=== PATIENT | male | born 1960 | race Caucasian/White ===

== ENCOUNTER → 2018-04-27 11:11 | Outpatient (CLI) | payer OTHER, SELFPAY ==
[2018-04-27 14:53] LABS: Absolute Lymphocyte Count 1.41 X10^3/ul (0.83-4.51); Absolute Neutrophil Count 3.1 X10^3/uL (2.0-7.7); Basophil# 0.02 X10^3/uL; Basophil% 0.4 % (0-1); Eosinophil# 0.19 X10^3/uL; Eosinophils% 3.8 % (0-5); Hematocrit 48.4 % (40-54); Hemoglobin 15.9 g/dl (13.0-16.5); Lymphocyte # 1.41 X10^3/ul (4.0); Lymphocyte % 28.4 % (19-41); Mean Corp Hgb Conc 32.9 g/gl (32-36); Mean Corpuscular Hgb 29.7 pg (27.0-32.0); Mean Corpuscular Volume 90.3 fL (80-94); Mean Platelet Vol. 10.1 fl (6.2-12.0); Monocyte# 0.27 X10^3/uL; Monocyte% 5.4 % (0-10); Neutrophil # 3.06 X10^3/uL (2.7-7.7); Neutrophil % 61.6 % (47-70); Platelet Count 225 K/mm3 (150-450); Red Blood Count 5.36 M/mm3 (4.6-6.2)
[2018-04-27 14:57] LABS: POSITIVE COUNT NO; POSITIVE DIFFERENTIAL NO; POSITIVE MORPHOLOGY NO
[2018-04-27 15:32] LABS: Ferritin 202 ng/mL (26-388); Iron 253 ug/dL (65-175); Iron Binding Capacity,Total 273 ug/dL (250-450)
== END ==
PROVIDERS: Family Provider Family Medicine; PCP Family Medicine; Visit Provider Family Medicine
DX: D64.9 Anemia, unspecified (principal)
CPT/HCPCS: 36415; 82728; 83540; 83550; 85025

== ENCOUNTER → 2018-07-20 09:48 | Outpatient (CLI) | payer OTHER, SELFPAY ==
[2018-07-20 12:22] LABS: Absolute Lymphocyte Count 1.42 X10^3/ul (0.83-4.51); Absolute Neutrophil Count 3.7 X10^3/uL (2.0-7.7); Basophil# 0.03 X10^3/uL; Basophil% 0.5 % (0-1); Eosinophil# 0.19 X10^3/uL; Eosinophils% 3.2 % (0-5); Hematocrit 46.4 % (40-54); Hemoglobin 15.8 g/dl (13.0-16.5); Lymphocyte # 1.42 X10^3/ul (4.0); Lymphocyte % 24.3 % (19-41); Mean Corp Hgb Conc 34.1 g/gl (32-36); Mean Corpuscular Hgb 30.3 pg (27.0-32.0); Mean Corpuscular Volume 88.9 fL (80-94); Mean Platelet Vol. 10.2 fl (6.2-12.0); Monocyte# 0.46 X10^3/uL; Monocyte% 7.9 % (0-10); Neutrophil # 3.72 X10^3/uL (2.7-7.7); Neutrophil % 63.6 % (47-70); Platelet Count 229 K/mm3 (150-450); RBC Distribution Width CV 12.4 % (11.6-14.6); RBC Distribution Width SD 40.6 fl (35.1-43.9); Red Blood Count 5.22 M/mm3 (4.6-6.2); White Blood Count 5.9 K/mm3 (4.4-11.0)
[2018-07-20 12:29] LABS: POSITIVE COUNT NO; POSITIVE DIFFERENTIAL NO; POSITIVE MORPHOLOGY NO
[2018-07-20 12:31] LABS: Anion Gap 6 (5-15); BUN 17 mg/dL (7-18); BUN/Creat Ratio 14.7 RATIO (10-20); Calcium,Total 8.5 mg/dL (8.5-10.1); Chloride 109 mmol/L (98-107); Cholesterol 170 mg/dL (200); Creatinine, Serum 1.16 mg/dL (0.70-1.30); EST Glomerular Filtration Rate 68 mL/min (>60); Est Glom Filt Rate - Afr Amer 83 mL/min (>60); Glucose 96 mg/dL (74-106); High Density Lipoprotein 53 mg/dL; Sodium Level 141 mmol/L (136-145); Triglycerides 103 mg/dL; Very Low Density Lipoprotein 21 mg/dL (5-40)
== END ==
PROVIDERS: Family Provider Family Medicine; PCP Family Medicine; Visit Provider Family Medicine
DX: D64.9 Anemia, unspecified (principal); R03.0 Elevated blood-pressure reading, without diagnosis of hypertension
CPT/HCPCS: 36415; 80048; 80061; 85025

== ENCOUNTER → 2019-01-18 | Outpatient (CLI) | payer OTHER, SELFPAY ==
[2019-01-18 16:11] LABS: Anion Gap 4 (5-15); BUN 13 mg/dL (7-18); BUN/Creat Ratio 11.8 RATIO (10-20); Calcium,Total 8.6 mg/dL (8.5-10.1); Chloride 108 mmol/L (98-107); Cholesterol 200 mg/dL (200); EST Glomerular Filtration Rate 73 mL/min (>60); Est Glom Filt Rate - Afr Amer 88 mL/min (>60); Glucose 96 mg/dL (74-106); High Density Lipoprotein 58 mg/dL; PSA,Total - Annual Screen 0.63 ng/mL (0.00-4.00); Potassium 4.2 mmol/L (3.5-5.1); Sodium Level 142 mmol/L (136-145); Thyroid Stim Hormone (TSH) 2.05 uIU/mL (0.358-3.74); Triglycerides 116 mg/dL; Very Low Density Lipoprotein 23 mg/dL (5-40)
[2019-01-18 17:33] LABS: Vitamin D,25 Hydroxy 30.4 ng/mL (29.95-100.01)
== END | disposition home or self-care (01) ==
PROVIDERS: Family Provider Family Medicine; PCP Family Medicine; Referring Provider Family Medicine; Visit Provider Family Medicine
DX: Z00.00 Encounter for general adult medical examination without abnormal findings (principal)
CPT/HCPCS: 36415; 80048; 80061; 82306; 84153; 84403; 84443; G0103

== ENCOUNTER 2019-04-06 13:48 | Emergency (ER) | payer OTHER, SELFPAY ==
[2019-04-06 13:49] VITALS: BP 144/88; PULSE 70; RESP 16; TEMP 36.7; O2SAT 99; BMI 30.7
--- NOTE | 2019-04-06 14:49 | ED.VISSUMM ---
- ER Visit Summary Date of Service: 04/06/19 Chief Complaint: [Injury to the left eye History of Present Illness: The patient is a 58 M presents to the emergency department with an injury that occurred to his left eye about an hour ago. Patient was trimming branches when he looked down and a branch accidentally hit him in the left eye. Patient complaining of photophobia and blurred vision. Patient's tetanus is up-to-date.] Physical Examination: [HEENT-PERRLA, EOMI. Cranial nerves II through XII grossly intact. TMs clear. Mucous membranes moist. No adenopathy. Patient holding the left eye closed and he has some tearing noted. Patient has some conjunctival erythema noted. No Marcus sign noted. Pupils are equal reactive to light and are 3 mm and reactive bilaterally. Cardiovascular-regular rate and rhythm without murmur or ectopy Lungs-clear to auscultation, chest wall stable without crepitus or subcu emphysema Abdomen-normoactive bowel sounds, soft, nontender, no rebound or rigidity, no peritoneal signs. Extremities-intact ?4, normal range of motion, normal pulses, atraumatic] Test Results: [Eyelids were everted no foreign bodies noted.] Emergency Department Course and Treatment: [Patient had tetracaine instilled in the left eye and the eye was stained with foreseen which noted a very large corneal abrasion measuring approximately 75% the width of the cornea. Patient also had some uptake on the lateral conjunctiva. No foreign bodies noted within the wounds. Patient had erythromycin ointment applied to the left thigh and a eye patch was applied.] Left eye pressure initially was obtained and was 24. Treatment Plan: [Case was discussed with ophthalmology on-call Dr. Cecilio Sainz who will see patient in the office in 2 days. Patient denies anything for pain for home as he has Vicodin at home left over from his recent rotator cuff surgery.] Disposition: [Discharged to home stable condition] Impression: [Left corneal abrasion] This note was generated with [employer] dictation software. It may contain incorrect words, spelling, and punctuation that were not noted in review of the chart prior to signing ED Disposition - Plan for ED Patient: Referrals: Denver Calix MD [Primary Care Provider] -
--- NOTE | 2019-04-06 14:53 | ED.DEP ---
ED Disposition - Plan for ED Patient: Instructions: Corneal Abrasion Referrals: Denver Calix MD [Primary Care Provider] - Cecilio Sainz MD [STAFF PHYSICIAN] - 04/08/19
[2019-04-06] MEDS: Tetracaine 0.5% Ophthalmic Bottle 1 DRP LEFT EYE (15:03)
== END 2019-04-06 15:11 | disposition home or self-care (01) ==
PROVIDERS: Emergency Provider Emergency Medicine; Family Provider Family Medicine; PCP Family Medicine
DX: S05.02XA Injury of conjunctiva and corneal abrasion without foreign body, left eye, initial encounter (principal); W22.8XXA Striking against or struck by other objects, initial encounter; Y93.9 Activity, unspecified; Y92.9 Unspecified place or not applicable
CPT/HCPCS: 99282

== ENCOUNTER → 2019-11-18 11:15 | Outpatient (CLI) | payer OTHER, SELFPAY ==
[2019-11-18 12:27] LABS: Absolute Lymphocyte Count 1.14 X10^3/uL (0.83-4.51); Absolute Neutrophil Count 3.8 X10^3/uL (2.0-7.7); Basophil# 0.02 X10^3/uL; Basophil% 0.3 % (0-1); Eosinophil# 0.15 X10^3/uL; Eosinophils% 2.6 % (0-5); Hematocrit 49.2 % (40-54); Hemoglobin 16.5 g/dL (13.0-16.5); Lymphocyte # 1.14 X10^3/ul (4.0); Lymphocyte % 19.9 % (19-41); Mean Corp Hgb Conc 33.5 g/dL (32-36); Mean Corpuscular Hgb 29.5 pg (27.0-32.0); Mean Corpuscular Volume 87.9 fL (80-94); Mean Platelet Vol. 10.1 fl (6.2-12.0); Monocyte# 0.56 X10^3/uL; Monocyte% 9.8 % (0-10); NRBC Flagged by Analyzer 0 % (0-5); Neutrophil # 3.83 X10^3/uL (2.7-7.7); Neutrophil % 67.1 % (47-70); Platelet Count 208 K/mm3 (150-450); RBC Distribution Width SD 38.5 fl (35.1-43.9); White Blood Count 5.7 K/mm3 (4.4-11.0)
[2019-11-18 13:07] LABS: Anion Gap 6 (5-15); BUN 17 mg/dL (7-18); BUN/Creat Ratio 13.1 RATIO (10-20); Calcium,Total 8.8 mg/dL (8.5-10.1); Chloride 111 mmol/L (98-107); EST Glomerular Filtration Rate 60 mL/min (>60); Est Glom Filt Rate - Afr Amer 72 mL/min (>60); Glucose 100 mg/dL (74-106); Potassium 3.9 mmol/L (3.5-5.1); Sodium Level 142 mmol/L (136-145)
== END ==
PROVIDERS: PCP Family Medicine; Referring Provider Family Medicine; Visit Provider Registered Nurse
DX: Z01.810 Encounter for preprocedural cardiovascular examination (principal); Z01.818 Encounter for other preprocedural examination
CPT/HCPCS: 36415; 80048; 85025

== ENCOUNTER → 2020-04-29 09:35 | Outpatient (CLI) | payer OTHER, SELFPAY ==
--- NOTE | 2020-04-29 09:38 | RAD_ITS ---
STUDY: X-RAY - RIGHT ELBOW REASON FOR EXAM: Male, 60 years old. PAIN IN RIGHT ELBOW WITH SWELLING FOR ABOUT A YEAR OR MORE. TECHNIQUE: 3 view(s) of the elbow. COMPARISON: None. FINDINGS: Normal visualized humerus, radius and ulna. There mild degenerative changes of the radiocapitellar and ulnotrochlear articulations. The soft tissue structures are unremarkable. RAD/Elbow min 3 Views IMPRESSION: Mild degenerative changes of the radiocapitellar and ulnotrochlear articulations. Electronically Signed: Eben Neri MD at 17:10 EDT , Service support ,
== END ==
PROVIDERS: PCP Family Medicine; Referring Provider Family Medicine; Visit Provider Family Medicine
DX: M25.521 Pain in right elbow (principal)
CPT/HCPCS: 73080

== ENCOUNTER → 2020-07-06 15:50 | Outpatient (CLI) | payer OTHER, SELFPAY | PROVIDERS: PCP Family Medicine; Visit Provider Family Medicine | DX: Z11.59 Encounter for screening for other viral diseases (principal) | CPT/HCPCS: 87635; U0003 ==

== ENCOUNTER → 2020-10-26 09:21 | Outpatient (CLI) | payer OTHER, SELFPAY ==
[2020-09-18 13:54] VITALS: BMI 29.7
[2020-10-26 09:42] LABS: Absolute Neutrophil Count 7.9 X10^3/uL (2.0-7.7); Basophil# 0.04 X10^3/uL; Basophil% 0.4 % (0-1); Eosinophil# 0.09 X10^3/uL; Eosinophils% 0.9 % (0-5); Hematocrit 50.8 % (40-54); Hemoglobin 16.7 g/dL (13.0-16.5); Lymphocyte % 8.3 % (19-41); Mean Corp Hgb Conc 32.9 g/dL (32-36); Mean Corpuscular Hgb 28.9 pg (27.0-32.0); Mean Platelet Vol. 9.3 fl (6.2-12.0); Monocyte# 0.77 X10^3/uL; NRBC Flagged by Analyzer 0 % (0-5); Neutrophil # 7.89 X10^3/uL (2.7-7.7); Neutrophil % 82.1 % (47-70); Platelet Count 234 K/mm3 (150-450); RBC Distribution Width CV 12.2 % (11.6-14.6); RBC Distribution Width SD 39.9 fl (35.1-43.9); Red Blood Count 5.77 M/mm3 (4.6-6.2); White Blood Count 9.6 K/mm3 (4.4-11.0)
[2020-10-26 09:57] LABS: ALB/GLOB Ratio 0.9 RATIO (0.9-2.4); AST(SGOT) 15 U/L (15-37); Alanine Aminotransfer ALT/SGPT 24 U/L (16-61); Albumin, Serum 3.7 g/dL (3.2-5.0); Alkaline Phosphatase 90 U/L (45-117); Anion Gap 6 (5-15); BUN 12 mg/dL (7-18); BUN/Creat Ratio 9.3 RATIO (10-20); Calcium,Total 8.7 mg/dL (8.5-10.1); Chloride 105 mmol/L (98-107); Creatinine, Serum 1.29 mg/dL (0.70-1.30); EST Glomerular Filtration Rate 60 mL/min (>60); Est Glom Filt Rate - Afr Amer 73 mL/min (>60); Globulin 3.9 g/dL (2.2-4.2); Glucose 115 mg/dL (74-106); Lipase 64 U/L (73-393); Potassium 3.9 mmol/L (3.5-5.1); Protein, Total 7.6 g/dL (6.4-8.2); Sodium Level 140 mmol/L (136-145)
== END ==
PROVIDERS: PCP Family Medicine; Referring Provider Family Medicine; Visit Provider Family Medicine
DX: R10.9 Unspecified abdominal pain (principal)
CPT/HCPCS: 36415; 80053; 83690; 85025

== ENCOUNTER 2020-10-26 10:45 | Observation (INO) | payer OTHER, SELFPAY ==
[2020-09-18 13:54] VITALS: BMI 29.7
[2020-10-26 10:46] VITALS: BP 153/96; PULSE 70; RESP 16; TEMP 35.5; O2SAT 98; BMI 28.5
--- NOTE | 2020-10-26 11:36 | CT_ITS ---
STUDY: CT ABDOMEN AND PELVIS WITH CONTRAST REASON FOR EXAM: Male, 60 years old. RT SIDE EPIGASTRIC PAIN, N/V, CONSTIPATION RADIATION DOSAGE (If Supplied By Facility): CTDIvol = ( 19.48 ) mGy, DLP = ( 1330.32 ) mGycm TECHNIQUE: Transaxial images were obtained from the dome of the diaphragm to the symphysis pubis without oral contrast. 100 ML ISOVUE 300 was administered. Sagittal and coronal images were reconstructed. Individualized dose optimization techniques were used for this CT. COMPARISON: Comparison is made with prior study dated 06/03/2016. FINDINGS: Mild degree of linear atelectasis and/or scarring at the right lung base. Calcified granuloma in the right lower lobe. The visualized portions of the heart are within normal limits. Stable 1 some mucous cyst in the inferior medial aspect of the right lobe of the liver. Stable 6 mm cyst in the left lobe of the liver. Mild degree of the thickening of the gallbladder wall with the findings suggest a mild degree of inflammatory changes in the fat surrounding the gallbladder. Correlation with ultrasound of the gallbladder is recommended for further evaluation. Normal spleen. Normal pancreas. Normal bilateral adrenal glands. Normal right kidney. Normal left kidney. There is a moderate-sized hiatal hernia. Normal small intestine. There are multiple colonic diverticula consistent with diverticulosis. The appendix is visualized and appears normal. Normal abdominal aorta. Normal inferior vena cava. Normal retroperitoneum. Normal urinary bladder. There is a right-sided inguinal hernia containing adipose tissue. There are diffuse degenerative changes of the visualized lumbar spine. Status post bilateral total hip replacement. CT/Abdomen/Pelvis WITH Contrast IMPRESSION: Mild degree of the gallbladder wall thickening with increased markings in the surrounding peritoneal fat. Correlation with ultrasound is recommended for further evaluation. Electronically Signed: Lj Francois MD at 12:25 EST , Service support ,
--- NOTE | 2020-10-26 11:43 | ED.VIS.GEN ---
History of Present Illness Chief Complaint: Abd Pain Informant: Patient Narrative: Patient presents with right-sided abdominal pain. Symptoms began on Monday and noted to be in the epigastric right abdomen. He has had some nausea and vomiting. He felt okay on Monday going into Monday. Symptoms returned. He notes his constipation and he took some magnesium citrate. Today he had outpatient labs by his primary care physician reviewed which revealed a white count of 9.6 glucose of 115 normal LFTs and lipase of 64. He was scheduled for an outpatient CAT scan but due to pain came to emergency. He denies any fevers. Past Medical History - Allergies and Home Meds Allergies/Adverse Reactions: Allergies NEOSYNEPHRINE Allergy (Uncoded 10/26/20 10:46) Unknown Primary Care Physician: Denver Calix MD [Primary Care Provider] - Past Medical History: - - GERD, depression, obstructive sleep apnea Surgical History: noncontributory Lives: With Family Smoking Status: Never smoker Drugs: None Review of Systems General: Denies: Chills, Fever, Sweats Eyes: Denies: Visual changes - bilaterally, Diplopia ENT: Denies: Rhinorrhea, Sore throat Cardiovascular: Denies: Chest pain, Palpitations Respiratory: Denies: Dyspnea, Cough, Dyspnea on exertion Gastrointestinal: Reports: Abdominal pain, Nausea, Vomiting, Constipation. Denies: Diarrhea, Melena, Hematochezia Genitourinary: Denies: Dysuria, Hematuria, Frequency Musculoskeletal: Denies: Back pain, Extremity Pain Skin: Denies: Rash, Wounds Neurological: Denies: Headache, Weakness, Numbness Physical Exam Vital Signs/Narrative: Vital Signs Temp Pulse Resp BP Pulse Ox 10/26/20 10:46 96 F L 70 16 153/96 H 98 Inital Vital Signs reviewed: Yes General: Well nourished, Well developed, No Acute Distress Head: Normocephalic, Atraumatic Eyes: Perrl, EOMI ENT: Moist mucous membranes, No rhinorrhea Neck: Supple, Nontender Cardiovascular: Regular rate, Regular rhythm, No murmurs Respiratory: No distress, CTA bilaterally, Chest nontender Abdomen: Soft, Nondistended, Normal bowel sounds, Tender - Tender palpation right upper quadrant and right middle quadrant. Back: Nontender, Normal Inspection Extremities: Nontender, No edema Skin: Normal color, No rash Neurological: Alert, Oriented x3, Cranial nerves II-XII grossly intact, Normal Strength, Normal Sensation Psychological: Normal affect, Normal Mood Diagnostic/Tx/Re-eval Clinical Impression(s) from Imaging Studies Abdomen/Pelvis CT 10/26/20 11:36 IMPRESSION: Mild degree of the gallbladder wall thickening with increased markings in the surrounding peritoneal fat. Correlation with ultrasound is recommended for further evaluation. Electronically Signed: Lj Francois MD at 12:25 EST , Service support , Abdomen Ultrasound 10/26/20 12:18 IMPRESSION: Positive sonographic Polo''s sign. Mildly thickened gallbladder wall. Small amount of sludge is seen within the gallbladder lumen. Electronically Signed: Lj Francois MD at 13:47 EST , Service support , - Medical Decision Making Covid negative. Labs are reviewed. Dr. Ulloa from general surgery was consulted and has seen the patient emergency department plan is admission. ED Disposition - Plan for ED Patient: Disposition: Acute Care Hospital [facility] Diagnosis: Acute cholecystitis Referrals: Denver Calix MD [Primary Care Provider] -
[2020-10-26] MEDS: 0.9% Normal Saline 1,000 ML 1000 ML IV (11:51)
[2020-10-26] MEDS: Morphine 4 MG/ML Syringe IV (11:51)
[2020-10-26] MEDS: Ondansetron 4 MG/2 ML Vial IV (11:52)
--- NOTE | 2020-10-26 12:18 | US_ITS ---
STUDY: ABDOMINAL ULTRASOUND - RIGHT UPPER QUADRANT REASON FOR VISIT: Male, 60 years old RIGHT ABD PAIN X 3 DAYS -- F/U CT DONE TODAY TECHNIQUE: Ultrasound evaluation of the right upper quadrant was performed with real-time and static brunner-scale imaging. TECHNICAL QUALITY: Adequate. COMPARISON: Comparison is made with prior CT scan done earlier today. FINDINGS: Liver: The liver measures 17.9 cm. There is normal echogenicity of the liver. The bile ducts are within normal limits. There is hepatic color flow. The direction of portal flow is hepatopetal. There is no demonstrated mass lesion. Gallbladder: Normal distended gallbladder. The gallbladder wall is slightly thickened and measures 3.4 mm. There is a positive sonographic Polo''s sign. There is no pericholecystic fluid. There are no gallstones. Sludge is seen within the gallbladder fluid. Common Bile Duct (C.B.D.): The common bile duct measures 3.4 mm. Pancreas: There is nonvisualization of the pancreas due to overlying bowel gas. Right Kidney: Normal size of the right kidney. The right kidney measures 12 cm x 6.5 cm x 6.1 cm. Normal renal cortex. The right cortex measures 1.4 cm. There is no demonstrated renal mass or cyst. There is no right hydronephrosis. US/Abdomen Limited IMPRESSION: Positive sonographic Polo''s sign. Mildly thickened gallbladder wall. Small amount of sludge is seen within the gallbladder lumen. Electronically Signed: Lj Francois MD at 13:47 EST , Service support ,
--- NOTE | 2020-10-26 14:13 | PCM.HP.STD ---
History of Present Illness Date of Admission: 10/26/20 The patient is a 60 year old M resents to the ER due to epigastric pain. Patient states initially pain started on Monday the epigastric region with nausea denies any vomiting patient did have fatty meal of chicken/gravy/dressing. The pain did get better on Monday. Patient did talk to his PCP and took some magnesium citrate patient did have bowel movements however that did not change the pain. Patient did have an outpatient CT scheduled by his PCP for today which showed a distended gallbladder with some inflammation around the wall normal appendix. Patient rates his epigastric pain is a 6?7/10. Patient's ultrasound also shows a slightly thickened wall with a positive Polo sign, gallbladder sludge, normal common bile duct. Patient does have a normal white blood cell count with a left shift and normal LFTs. Past Medical History Medical History: Medical History (Last Reviewed 09/18/20 @ 13:54 by Carline Ortiz) Depression F32.9 GERD (gastroesophageal reflux disease) K21.9 Hemorrhoids K64.9 RIMA (obstructive sleep apnea) G47.33 Obesity E66.9 Allergies NEOSYNEPHRINE Allergy (Uncoded 10/26/20 10:46) Unknown Home Medications: Ambulatory Orders Medication Instructions Recorded Esomeprazole Mag Trihydrate 40 mg PO DAILY 06/03/16 [Nexium] B-complex with vitamin C 1 cap PO DAILY 09/18/20 cholecalciferol (vitamin D3) 25 25 mcg PO DAILY 09/18/20 mcg (1,000 unit) capsule ferrous sulfate 325 mg (65 mg 325 mg PO DAILY 09/18/20 iron) tablet psyllium husk 0.4 gram capsule 0.4 g PO DAILY 09/18/20 Naproxen [Naprosyn] 500 mg PO BID PRN 10/26/20 Paroxetine [Paxil] 10 mg PO DAILY 10/26/20 Surgical History: Surgical History (Last Reviewed 09/18/20 @ 13:54 by Carline Ortiz) S/P hemorrhoidectomy Z98.890, Z87.19 S/P shoulder surgery Z98.890 Status post total hip replacement, bilateral Z96.643 Lives: With Family Smoking Status: Never smoker Drugs: None - *Family History Maternal Family History: Family History (Last Reviewed 09/18/20 @ 13:54 by Carline Ortiz) Brother Hypertension History Items: No pertinent history VTE Information - Inpt Only VTE Present on Admission: Yes VTE Mechan Device Prophylaxis: SCD's Patient Problems: Active and Suspected Problems (Last Reviewed 09/18/20 @ 13:54 by Carline Ortiz) Acute cholecystitis (Acute) - Physical Exam Vitals/I&O's: Vital Signs Temp Pulse Resp BP Pulse Ox 96 F L 70 16 153/96 H 98 10/26/20 10:46 10/26/20 10:46 10/26/20 10:46 10/26/20 10:46 10/26/20 10:46 Oxygen Delivery Method Room Air Weight: 205 lb Body Mass Index (BMI) 28.5 General: Alert, Oriented x3, Cooperative, No apparent distress HEENT: Atraumatic Lungs: Normal air movement Cardiovascular: Regular rate Abdomen: Soft, Non-Distended, Tender - Epigastric and right upper quadrant, positive Polo sign, no guarding, equivocal rebound Extremities: No clubbing, No cyanosis, No edema Neurological: Cranial nerves II-XII grossly intact Psych/Mental Status: Normal Affect Microbiology Past 72 Hours 10/26/20 13:30 Mucosa - Nose SARS-CoV-2 Antigen (Rapid) - Final Current Medications Sodium Chloride () 1,000 mls @ 250 mls/hr IV .Q4H CARLOS ALBERTO Assessment/Plan All Active Problems (Last Reviewed 09/18/20 @ 13:54 by Carline Ortiz) Acute cholecystitis (Acute) 60-year-old male with acute cholecystitis We will admit okay for clears today, n.p.o./IV fluids at midnight, IV Zosyn and pain control. Reviewed the anatomy with the patient and discussed the procedure: laparoscopic cholecystectomy with cholangiograms, possible open. Review risks including but not limited to bleeding, infection, hernia, bile leak, retained gallstones requiring another procedure ERCP- Endoscopic Retrograde Cholangiopancreatography, injury to another organ (bile ducts, common bile duct, small bowel, etc.) which may require transfer to tertiary care facility and conversion to an open procedure. All questions were answered. Karina Ferreira M.D. Pager: [phone] [facility] [address] [place] [address], [facility], [address] [place] [address] Office: [phone] Procedure Criteria Procedure Type: Elective COVID Risk Discussion: The surgeon/proceduralist and patient have discussed in detail the risk of exposure to and/or potential harm posed by the COVID-19 virus with having a surgery/procedure at this time versus the risk of delaying the surgery/procedure. It is not possible to know either the risk of delaying the surgery or procedure or chance of getting an infection with perfect accuracy, but a joint decision was made between the patient and the surgeon/proceduralist to proceed at this time with the scheduled surgery/procedure as indicated on the consent form. Inpatient E&M: 88645 Init Hosp L2
[2020-10-26 14:43] VITALS: BP 139/98; PULSE 65; RESP 18; TEMP 36.6; O2SAT 98
[2020-10-26] MEDS: 0.9% Normal Saline 1,000 ML 250 ML IV (14:44)
[2020-10-26] MEDS: Lactated Ringers 1,000 ML 125 ML IV (16:35)
[2020-10-26 17:10] VITALS: BMI 29.0
[2020-10-26 17:11] VITALS: BMI 29.0
[2020-10-26] MEDS: Acetaminophen 325 MG Tablet 650 MG PO (18:34)
[2020-10-26 21:07] VITALS: BP 110/85; PULSE 56; RESP 18; TEMP 36.8; O2SAT 99
[2020-10-26] MEDS: traZODone 100 MG Tablet PO (21:09)
[2020-10-27] VITALS (14 sets, daily range): BP systolic 109–151; BP diastolic 72–92; PULSE 54–83; RESP 12–18; TEMP 36.2–36.9; O2SAT 93–100; BMI 29.0
[2020-10-27] MEDS: Lactated Ringers 1,000 ML 125 ML IV ×3 (00:45→12:01)
--- NOTE | 2020-10-27 03:22 | PCS.PANDOC ---
PANDEMIC DOCUMENTATION INITIATED: Date: 10/26/20 Time: 1904
[2020-10-27 05:50] LABS: Absolute Lymphocyte Count 1.15 X10^3/uL (0.83-4.51); Absolute Neutrophil Count 3.9 X10^3/uL (2.0-7.7); Basophil# 0.03 X10^3/uL; Basophil% 0.5 % (0-1); Eosinophil# 0.25 X10^3/uL; Eosinophils% 4.3 % (0-5); Hematocrit 42.5 % (40-54); Hemoglobin 13.9 g/dL (13.0-16.5); Lymphocyte # 1.15 X10^3/ul (4.0); Lymphocyte % 19.6 % (19-41); Mean Corp Hgb Conc 32.7 g/dL (32-36); Mean Corpuscular Hgb 29.1 pg (27.0-32.0); Mean Corpuscular Volume 89.1 fL (80-94); Mean Platelet Vol. 9.5 fl (6.2-12.0); Monocyte# 0.56 X10^3/uL; Monocyte% 9.5 % (0-10); NRBC Flagged by Analyzer 0 % (0-5); Neutrophil # 3.87 X10^3/uL (2.7-7.7); Neutrophil % 65.8 % (47-70); Platelet Count 187 K/mm3 (150-450); RBC Distribution Width CV 12.4 % (11.6-14.6); RBC Distribution Width SD 40.8 fl (35.1-43.9); Red Blood Count 4.77 M/mm3 (4.6-6.2); White Blood Count 5.9 K/mm3 (4.4-11.0)
--- NOTE | 2020-10-27 06:00 | EKG12_ITS ---
Test Reason : MORNING EKG Blood Pressure : / mmHG Vent. Rate : 058 BPM Atrial Rate : 058 BPM P-R Int : 144 ms QRS Dur : 100 ms QT Int : 456 ms P-R-T Axes : 033 043 028 degrees QTc Int : 447 ms Sinus bradycardia with Premature atrial complexes Otherwise normal ECG No previous ECGs available Confirmed by ANT RAMIREZ, ROSY ([id number]), clinical editor WILMER MAURO ([id number]) on 10/28/2020 11:21:57 AM Referred By: JENY Confirmed By:ROSY CAIN MD
[2020-10-27 06:20] LABS: AST(SGOT) 17 U/L (15-37); Alanine Aminotransfer ALT/SGPT 19 U/L (16-61); Albumin, Serum 2.9 g/dL (3.2-5.0); Alkaline Phosphatase 68 U/L (45-117); Anion Gap 2 (5-15); BUN 9 mg/dL (7-18); BUN/Creat Ratio 7.7 RATIO (10-20); Bilirubin, Direct 0.22 mg/dL (0.00-0.30); Calcium,Total 7.9 mg/dL (8.5-10.1); Chloride 109 mmol/L (98-107); Creatinine, Serum 1.17 mg/dL (0.70-1.30); EST Glomerular Filtration Rate 67 mL/min (>60); Est Glom Filt Rate - Afr Amer 81 mL/min (>60); Estimated Creatinine Clearance 70.62 ml/min; Globulin 2.9 g/dL (2.2-4.2); Glucose 95 mg/dL (74-106); Potassium 4.1 mmol/L (3.5-5.1); Protein, Total 5.8 g/dL (6.4-8.2); Sodium Level 141 mmol/L (136-145)
--- NOTE | 2020-10-27 08:31 | PCM.PN.SRG ---
Patient Problems: Active and Suspected Problems (Last Reviewed 09/18/20 @ 13:54 by Carline Ortiz) Acute cholecystitis (Acute) Subjective: Patient denies any pain, White blood cell count within normal limits with no shift on IV Zosyn overnight. - Physical Exam Vitals/I&O's: Vital Signs Temp Pulse Resp BP Pulse Ox 98.1 F 58 L 18 109/74 95 10/27/20 02:45 10/27/20 02:45 10/27/20 02:45 10/27/20 02:45 10/27/20 02:45 Oxygen Delivery Method Room Air Weight: 207 lb 12.8 oz Body Mass Index (BMI) 29.0 Intake and Output for Last 24 Hours 10/25/20 10/26/20 10/27/20 23:59 23:59 23:59 Intake Total 2556.67 / 2556.67 1000 / 1000 Balance 2556.67 / 2556.67 1000 / 1000 General: Alert, Oriented x3, Cooperative, No apparent distress HEENT: Atraumatic Lungs: Normal air movement Cardiovascular: Regular rate Abdomen: Soft, Non-Distended, Tender - Minimal epigastric/right upper quadrant no peritoneal signs Extremities: No clubbing, No cyanosis, No edema Microbiology Past 72 Hours 10/26/20 13:30 Mucosa - Nose SARS-CoV-2 Antigen (Rapid) - Final Laboratory Results 10/27/20 05:40: WBC 5.9, RBC 4.77, Hgb 13.9, Hct 42.5, MCV 89.1, MCH 29.1, MCHC 32.7, RDW Std Deviation 40.8, RDW Coeff of Dennis 12.4, Plt Count 187, MPV 9.5, Immature Gran % (Auto) 0.300, Neut % (Auto) 65.8, Lymph % (Auto) 19.6, [place] % (Auto) 9.5, Eos % (Auto) 4.3, Baso % (Auto) 0.5, Absolute Neuts (auto) 3.9, Absolute Lymphs (auto) 1.15, Nucleated RBC % 0 10/27/20 05:40: Sodium 141, Potassium 4.1, Chloride 109 H, Carbon Dioxide 30.0, Anion Gap 2 L, BUN 9, Creatinine 1.17, Estim Creat Clear Calc 70.62, Est GFR (MDRD) Af Amer 81, Est GFR (MDRD) Non-Af 67, BUN/Creatinine Ratio 7.7 L, Glucose 95, Calcium 7.9 L, Total Bilirubin 0.90, Direct Bilirubin 0.22, AST 17, ALT 19, Alkaline Phosphatase 68, Total Protein 5.8 L, Albumin 2.9 L, Globulin 2.9 Current Medications Acetaminophen (Acetaminophen 325 Mg Tablet) 650 mg PO Q4H PRN PRN PRN Reason: Pain Score 1-10 Last Admin: 10/26/20 18:34 Dose: 650 mg Documented by: Diphenhydramine HCl (Diphenhydramine 25 Mg Capsule) 25 mg PO QHS PRN PRN PRN Reason: SLEEP Lactated Ringer's () 1,000 mls @ 125 mls/hr IV .Q8H [facility] Last Admin: 10/27/20 00:45 Dose: 125 mls/hr Documented by: Pantoprazole Sodium 40 mg/ (Sodium Chloride) 110 mls @ 330 mls/hr IV Q24 [facility] Last Infusion: 10/26/20 17:47 Dose: Infused Documented by: Piperacillin Sod/Tazobactam (Sod 3.375 gm/ Sodium Chloride) 50 mls @ 12.5 mls/hr IV Q8 [facility] Last Admin: 10/27/20 05:50 Dose: 12.5 mls/hr Documented by: Morphine Sulfate (Morphine 2 Mg/Ml Syringe) 2 - 4 mg IV Q2H PRN PRN PRN Reason: Pain Score 1-10 Morphine Sulfate (Morphine 4 Mg/Ml Syringe) 2 - 4 mg IV Q2H PRN PRN PRN Reason: Pain Score 1-10 Paroxetine HCl (Paroxetine 10 Mg Tablet) 10 mg PO DAILY [facility] Sodium Chloride (0.9% Saline Lock 10 Ml Syringe) 10 - 40 ml IV UD PRN PRN Reason: SALINE FLUSH Trazodone HCl (Trazodone 100 Mg Tablet) 100 mg PO QHS [facility] Last Admin: 10/26/20 21:09 Dose: 100 mg Documented by: Medical Necessity - Tobacco Use Smoking Status: Never smoker Tobacco Use: Secondhand Assessment/Plan All Active Problems (Last Reviewed 09/18/20 @ 13:54 by Carline Ortiz) Acute cholecystitis (Acute) 60-year-old male with acute cholecystitis Will go for laparoscopic cholecystectomy with cholangiograms possible open today. Continue IV Zosyn. Karina Ferreira M.D. Pager: [phone] [facility] [address] [place] [address], [facility], [address] [place] [address] Office: [phone]
--- NOTE | 2020-10-27 11:00 | GALL_PTH ---
PATIENT: ODIN WILSON LOC: MS3 U#:[id number] AGE/SX: 60/M ROOM: VT310 RE10/26/[address]: Dr. Karina Ferreira MD : 1960 BED: 1 DIS: 10/27/2020 SPEC #: [id number] RECD: 10/27/20 13:13 STATUS: SUSANA RECharl[place] #: [id number] JOVANNA: 10/27/20 11:[address]: Karina Fererira DEPT: SURGICAL PATHOLOGY RECD BY: Wanda Villareal ENTERED: 10/28/20 07:16 SP TYPE: MIGDALIA WILL DR: Dr. Denver Calix MD Tissues: Gallbladder, NOS Procedures: Surgery Specimen Level III HEADER OPERATION: Laparoscopic cholecystectomy with IOC PRE-OP DIAGNOSIS: Acute cholecystitis TISSUE SUBMITTED: Gallbladder MICROSCOPIC DIAGNOSIS Gallbladder, cholecystectomy: Chronic cholecystitis and cholelithiasis. AM:tanner 10/29/2020 MICROSCOPIC DESCRIPTION Slides are reviewed. GROSS DESCRIPTION Received is one container labeled with the patient's name and designated gallbladder. The specimen consists of a gallbladder measuring 8.5 x 3.5 x 2 cm. The external surface is smooth and glistening. Focally, it is granular, hemorrhagic and contains cautery artifact. The lumen of the gallbladder contains yellow-green mucoid bile and multiple black calculi ranging in size from 0.1 to 0.5 cm in greatest dimension. The mucosa is bile-stained and without any mass lesions. The gallbladder wall averages 0.3 cm in thickness and is free of mass lesions. Lens Mold Setter sections of the gallbladder and the cystic duct at margin of resection are submitted in one cassette. / AM:tanner 10/28/20 TC:3 CPT: 43719
--- NOTE | 2020-10-27 11:21 | RAD_ITS ---
STUDY: INTRAOP CHOLANGIOGRAM. REASON FOR EXAM: Male, 60 years old. CHOLANGIOGRAM FLUOROSCOPY TIME (if supplied): ( 6 seconds ) minutes/seconds. A cine loop of 40 images was submitted. TECHNIQUE: Intraoperative cholangiogram was performed by the surgeon. Imaging was submitted. COMPARISON: None. FINDINGS: The visualized intrahepatic biliary ducts are unremarkable. The common bile duct is not dilated. No intraluminal filling defect is seen. Free flow of contrast into the duodenum. RAD/Cholangiogram/ O R,Initial IMPRESSION: Unremarkable intraoperative Cholangiogram. Electronically Signed: Lj Francois MD at 12:42 EST , Service support ,
--- NOTE | 2020-10-27 12:26 | OP.PCM_ITS ---
Report of Operation Date of Procedure: 10/27/20 Pre-Operative Diagnosis: Acute cholecystitis Post-Operative Diagnosis: Same Surgery/Procedure Performed:: Laparoscopic cholecystectomy corporate travel coordinator: Vimal Tinajero Type of Anesthesia:: General/Supplemental Anesthesiologist: Luis Alfredo Ray Special Medications: Zosyn 3.375 g IV every 8 hours for acute cholecystitis Specimen's removed: Gallbladder Estimated Blood Loss (mL): 30 cc Fluids Replaced: 500 cc Description of Procedure: Indications this is a 60 year-old male who developed abdominal pain/nausea/vomiting and on workup was found to have cholelithiasis, acute cholecystitis with a normal common bile duct. Laparoscopic cholecystectomy was elected. He was on Zosyn 3.375 g IV every 8 hours Description procedure: The patient was placed on operating table in supine position. General Anesthesia was induced. A timeout was completed verifying correct patient, procedure, site, position and special equipment prior to beginning procedure. The abdomen was prepped and draped in usual sterile fashion. An incision was made in the natural skin line above the umbilicus. The fascia was elevated and incised. The peritoneum was elevated and incised. Entry into the peritoneum was confirmed visually and no bowel was noted in the vicinity of the incision. Justice trocar was placed. The abdomen was insufflated with carbon dioxide to a pressure of 12-15 mmHg. Patient tolerated insufflation well. The laparoscope was then inserted and abdomen inspected. No injuries from initial trocar placement were noted. Additional trochars were then inserted in the following locations 5 mm trocar in the epigastrium and 2 more 5 mm trochars along the right costal margin. The abdomen was inspected no abnormalities were found. The table is placed in reverse Trendelenburg position with the right side up. The adhesions between the gallbladder and omentum were lysed sharply. The dome of the gallbladder was grasped with atraumatic grasper passed through the lateral port and retracted over the dome of the liver. Infundibulum was then grasped with atraumatic grasper through the midclavicular port and retracted to the right lower quadrant. This maneuver exposed Calot's triangle. The peritoneum overlying the gallbladder infundibulum was then incised and cystic duct and artery identified and circumferentially dissected. Kern catheter was used for cholangiograms. The cholangiogram showed good filling of the common bile duct into the duodenum with no filling defects, good filling of the right and left bile ducts as well. The cystic duct and artery were then doubly clipped and divided close to the gallbladder. The gallbladder then dissected from its peritoneal attachments by electrocautery. There is noted to be a superficial vein on the gallbladder fossa which was clipped using the metal 5 mm clips. Hemostasis was checked and the gallbladder and contained stones were removed using the endoscopic retrieval bag through the umbilical port. The gallbladder is passed off table as specimen. The gallbladder fossa was copiously irrigated with saline and hemostasis obtained. There is no evidence of bleeding from the gallbladder fossa or cystic artery leakage of bile from the cystic duct stump. Secondary trochars removed under direct vision. No bleeding was noted the trocar sites. The laparoscope was withdrawn and umbilical trocar removed. The abdomen was allowed to collapse. The fascia of the 12 mm trocar was closed with a [id number] 0 Vicryl suture. The skin was closed with sutures of 4-0 Monocryl and Steri-Strips. The orogastric tube was removed and the patient was extubated. The patient tolerated procedure well and was taken to the postanesthesia care unit in stable condition. - Complications none
--- NOTE | 2020-10-27 13:26 | PCM.DC.GB ---
Discharge Diet: Light diet - advance as tolerated Discharge Activity: May not drive while taking narcotic pain medications. May shower in (days): 1 Lifting Restrictions: no Lifting > 20 pounds x 2 weeks, no strenuous exercise for 4 weeks Call your doctor if your incision/area has: Continuous Slow Oozing, Sudden Increased Bleeding, Increased Pain/ Swelling, Increased Redness, Foul Smelling Discharge, Swelling at the incision site Call your doctor if you observe: Fever of 101 or Higher Remove Dressing in (days):: 1 - Steri-Strips stand for 7 to 10 days if not follow-up okay to remove after 10 days Additional Instructions: Okay to take ibuprofen 400-600 mg PO q6hr PRN along with the hydrocodone/acetaminophen. Avoid Tylenol since there is already Tylenol in the hydrocodone/acetaminophen. Take all pain meds with food. Hydrocodone/acetaminophen can cause constipation recommend taking daily stool softener (i.e. Colace/docusate) while taking the pain meds. Recommend starting some MiraLAX 1 to 2 days if no bowel movement. If still no bowel movement for 1 day recommend taking magnesium citrate half the bottle and waiting 4-6 hours if still no results take the other half the bottle. Allergies/Adverse Reactions: Allergies hazelnut Allergy (Verified 10/26/20 17:05) Anaphylaxis NEOSYNEPHRINE Allergy (Uncoded 10/26/20 17:05) Anaphylaxis Medications to take at Discharge Esomeprazole Mag Trihydrate [Nexium] 40 mg PO DAILY 06/03/16 B-complex with vitamin C 1 cap PO DAILY 09/18/20 cholecalciferol (vitamin D3) 25 mcg (1,000 unit) capsule 25 mcg PO DAILY 09/18/20 ferrous sulfate 325 mg (65 mg iron) tablet 325 mg PO DAILY 09/18/20 psyllium husk 0.4 gram capsule 0.4 g PO DAILY 09/18/20 Naproxen [Naprosyn] 500 mg PO BID PRN 10/26/20 Paroxetine [Paxil] 10 mg PO DAILY 10/26/20 Hydrocodone Bitart/Apap 5-325 [[place] 5MG-325MG] 1 - 2 tab PO Q6H PRN PRN 2 Days #10 tab 10/27/20 The following prescriptions were given: Hydrocodone Bitart/Apap 5-325 [[place] 5MG-325MG] 1 - 2 tab PO Q6H PRN PRN 2 Days #10 tab PRN Reason: Pain Transmission Status: Received by [facility] Primary Care Physician: Denver Calix MD [Primary Care Provider] - Test Results: Test results from this visit will be discussed in further detail at your follow-up appointment, if applicable. Please Follow Up With: Karina Ferreira MD - After 5 PM and on the weekends call [phone] with any concerns When: call office for f/u appt in 2 weeks Proposed Discharge Date: 10/27/20
[2020-10-27] MEDS: HYDROcodone Bitartrate/Apap 5/325 Tablet PO (15:49)
[2020-10-27] MEDS: PARoxetine 10 MG Tablet PO (15:51)
== END 2020-10-27 17:50 | disposition home or self-care (01) ==
LOC: ED 14:32 → MS3 14:47
PROVIDERS: Admitting Provider Surgery; Emergency Provider Emergency Medicine; PCP Family Medicine; Visit Provider Surgery
PROC: (CPT 47610; principal; 2020-10-27 10:40)
DX: K80.00 Calculus of gallbladder with acute cholecystitis without obstruction (principal); K59.00 Constipation, unspecified; K21.9 Gastro-esophageal reflux disease without esophagitis; G47.33 Obstructive sleep apnea (adult) (pediatric); F32.9 Major depressive disorder, single episode, unspecified; Z79.899 Other long term (current) drug therapy; F41.9 Anxiety disorder, unspecified
CPT/HCPCS: 47563; 74177; 74300; 76000; 76705; 80048; 80076; 85025; 87426; 88304; 93005; 96361; 96365; 96366; 96367; 96375; 96376; 99218; 99251; 99285; J7030; J7120; Q9967; A4216; G0378; G0463; J2405

== ENCOUNTER → 2021-07-13 | Outpatient (CLI) | payer OTHER, SELFPAY | END | disposition home or self-care (01) | LOC: LABSPEC 08:45 | PROVIDERS: PCP Family Medicine; Referring Provider Family Medicine; Visit Provider Family Medicine | DX: Z71.84 Encounter for health counseling related to travel (principal) | CPT/HCPCS: 87635; U0005; U0003 ==

== ENCOUNTER → 2021-08-30 | Outpatient (CLI) | payer OTHER, SELFPAY | END | disposition home or self-care (01) | PROVIDERS: PCP Family Medicine; Visit Provider Family Medicine | DX: U07.1 COVID-19 (principal) | CPT/HCPCS: 87635; U0005; U0003 ==

== ENCOUNTER 2021-09-01 13:37 | Outpatient (CLI) | payer OTHER, SELFPAY ==
[2021-09-01 13:52] VITALS: BP 130/95; PULSE 78; RESP 16; TEMP 36.6; O2SAT 100; BMI 28.7
[2021-09-01] MEDS: 0.9% Saline Lock 10 ML Syringe IV (13:54)
[2021-09-01 14:27] VITALS: BP 133/90; PULSE 73; RESP 16; TEMP 36.6; O2SAT 98
[2021-09-01 15:22] VITALS: BP 130/88; PULSE 67; RESP 16; TEMP 36.6; O2SAT 98
== END 2021-09-01 15:27 | disposition home or self-care (01) ==
LOC: MS3OUT 13:37 → MS3 13:38
PROVIDERS: PCP Family Medicine; Referring Provider Nurse Practitioner Adult Health; Visit Provider Nurse Practitioner Adult Health
DX: Z23 Encounter for immunization (principal); U07.1 COVID-19
CPT/HCPCS: J7050; M0245; Q0245; A4216

== ENCOUNTER 2021-12-07 11:24 | Outpatient (CLI) | payer OTHER, SELFPAY ==
[2021-12-07 12:36] LABS: Anion Gap 5 (5-15); BUN 14 mg/dL (7-18); BUN/Creat Ratio 12.3 RATIO (10-20); Calcium,Total 8.9 mg/dL (8.5-10.1); Chloride 108 mmol/L (98-107); Cholesterol 173 mg/dL (200); Creatinine, Serum 1.14 mg/dL (0.70-1.30); EST Glomerular Filtration Rate 69 mL/min (>60); Est Glom Filt Rate - Afr Amer 84 mL/min (>60); Glucose 96 mg/dL (74-106); High Density Lipoprotein 63 mg/dL; PSA,Total - Annual Screen 0.72 ng/mL (0.00-4.00); Potassium 4.1 mmol/L (3.5-5.1); Sodium Level 141 mmol/L (136-145); Triglycerides 109 mg/dL; Very Low Density Lipoprotein 22 mg/dL (5-40)
[2021-12-07 12:38] LABS: Vitamin D,25 Hydroxy 52.9 ng/mL
== END 2021-12-07 23:59 | disposition home or self-care (01) ==
LOC: MFPLAB 11:25
PROVIDERS: PCP Family Medicine; Referring Provider Family Medicine; Visit Provider Family Medicine
DX: Z00.00 Encounter for general adult medical examination without abnormal findings (principal)
CPT/HCPCS: 36415; 80048; 80061; 82306; 84153; 84403; G0103

== ENCOUNTER 2022-01-05 11:26 | Day surgery (SDC) | payer OTHER, SELFPAY ==
[2022-01-05] VITALS (7 sets, daily range): BP systolic 96–136; BP diastolic 72–92; PULSE 57–69; RESP 14–16; TEMP 36.2–36.6; O2SAT 55–98; BMI 28.4
--- NOTE | 2022-01-05 12:24 | PCM.HP.BLA ---
History and Physical Date of Admission: 01/05/22 ODIN WILSON, is a 61 M who presents to the office today for evaluation of possible hemorrhoid. He has a history of hemorrhoidal disease requiring banding to internal hemorrhoids and surgically removed external hemorrhoids. He says recently he has been up more explained to him with burning and a low-grade bleeding per rectum. He cannot tell if it is a hemorrhoid or not because he cannot see it. He does not take any blood thinners. He denies any chest pain or shortness of breath. ROS General General: Yes fatigue; No weight change, appetite, colon cancer, breast cancer or weakness HEENT HEENT: No difficulty swallowing, eye injury, eye surgery, swollen glands or hoarseness Endo Endocrine: No thyroid disease, diabetes mellitus, thyroid cancer, Hair loss, heat intolerance or cold intolerance Skin Skin: No rash or changing moles Breast Breast: No left breast lump, right breast lump, nipple discharge, breast pain, abnormal mammogram, abnormal US or breast enlargement Musc Musculoskeletal: Yes joint pain; No back problems, arthritis, rheumatoid arthritis or gout Cardio Cardiovascular: No murmur, pacemaker, heart disease, atrial fibrillation, high blood pressure, heart attack, heart stent, palpitations, shortness of breat with exertion or chest pain Psych Psychiatric: No depression, anxiety or hearing voices Resp Respiratory: No shortness of breath, No sleep apnea, No cough, No COPD, No asthma, No emphysema and No wheezing Gastro Gastrointestinal: No abdominal pain, No nausea or vomiting, No diarrhea, Yes constipation, No blood in stool, No acid reflux, No hemorrhoids, No ulcers, No gallbladder problem and No black,tarry stools Additional Details: gas/bloating, hemorrhoids Paulino Hematologic: No blood thinners, No blood disorders, No bleeding, No anemia and No blood clots Neuro Neurologic: No system reviewed and no additional complaints, except as documented, No as per HPI, No abnormal gait, No abnormal hearing, No abnormal movements, No abnormal speech, No behavioral changes, No burning sensations, No confusion, No convulsions, No disequilibrium, No dizziness, No localized weakness, No frequent falls, No headache(s), No lack of coordination, No loss of vision, No memory loss, No numbness, No other visual disturbances, No radicular pain, No restless legs, No sensory deficit, No syncope, No tingling, No tremor(s), No weakness and No other Exam Const General: cooperative and comfortable Nutritional Appearance: average body habitus and well nourished HENCT Head: normal to inspection Ears: hearing grossly normal bilaterally Nose: external nose normal Face and sinus: normal facial exam Mouth: oral mucosae normal Throat: posterior oropharynx normal Eyes General: appearance normal, both eyes and all related structures Neck Neck: normal visual inspection Chest Chest palpation & inspection: normal inspection of the chest and normal palpation of entire chest wall Resp Effort & Inspection: normal respiratory effort Cardio Palpation: normal PMI Rate: regular rate Rhythm: regular rhythm GI Inspection: normal to inspection Palpation: no hepatosplenomegaly Percussion: normal to percussion Auscultation: normal bowel sounds Rectal Exam: other (No lesions were seen at the anorectal verge. He does have an old skin tag ) Other: I cannot see any area of the graciela bled recently. Skin General: no rashes or lesions noted Neuro General: patient alert Extrem General: normal to inspection Psych Affect: normal affect Assessment and Plan Assessment and Plan (1) Hemorrhoids: Status: Acute Qualifiers: Hemorrhoid type: first degree Qualified Code(s): K64.0 - First degree hemorrhoids Plan - Dr. Emanuel Friend, DO: Patient will go for the evaluation of the rectum under anesthesia. He is okay with endoscopically treating an anal fissure or hemorrhoids if discovered on examination. I have re-examined the patient. There are no clinical changes since date of exam.
--- NOTE | 2022-01-05 12:30 | COLBX_PTH ---
PATIENT: ODIN WILSON LOC: EN U#:[id number] AGE/SX: 61/M ROOM: RE01/05/[address]: Dr. Adelfo Valentin DO : 1960 BED: DIS: 01/05/2022 SPEC #: [id number] RECD: 01/05/22 15:07 STATUS: SUSANA JOANNA #: [id number] JOVANNA: 01/05/22 12:[address]: Adelfo Valentin DEPT: SURGICAL PATHOLOGY RECD BY: Wanda Villareal ENTERED: 01/06/22 08:59 SP TYPE: COLON BX OTHR DR: Dr. Denver Calix MD Tissues: A - Cecum, NOS B - Ileum, NOS C - COLON BIOPSY Procedures: Surgery Specimen Level IV HEADER OPERATION: Colonoscopy (MAC) with polyp removal and banding of hemorrhoids PRE-OP DIAGNOSIS: Hemorrhoids TISSUE SUBMITTED: A ? Cecal polyp, B ? Terminal ileum biopsy, C ? Hepatic flexure polyp MICROSCOPIC DIAGNOSIS A. Cecal polyp, biopsy: Tubular adenoma. B. Terminal ileum, biopsy: Fragments of small intestinal mucosa, no pathologic diagnosis. See comment. C. Hepatic flexure polyp, biopsy: Tubular adenoma. SJ:tanner 01/07/2022 COMMENT B. Prominent lymphoid aggregate are noted. MICROSCOPIC DESCRIPTION Slides are reviewed. GROSS DESCRIPTION A - Received in fixative is one container labeled with the patient's name and designated cecal polyp. The specimen consists of one irregular fragment of light roldan soft tissue that measures 0.3 x 0.3 x 0.1 cm. The specimen is totally submitted in one cassette. B - Received in fixative is one container labeled with the patient's name and designated terminal ileum biopsy. The specimen consists of multiple irregular fragments of light roldan soft tissue that in aggregate measure 0.6 x 0.3 x 0.1 cm. The specimen is totally submitted in one cassette. C - Received in fixative is one container labeled with the patient's name and designated hepatic flexure polyp. The specimen consists of one irregular fragment of light roldan soft tissue that measures 0.3 x 0.3 x 0.1 cm. The specimen is totally submitted in one cassette. / WING:tanner 01/06/2022 TC:1 CPT: 13344 x3
--- NOTE | 2022-01-05 13:58 | OP.COLON_ITS ---
Patient Name: Kannan Springer Procedure Date: 01/05/2022 1:21 PM Date of : 1960 Age: 61 Procedure: Colonoscopy Indications: Pelvic pain Providers: Adelfo Valentin DO Medicines: See the Anesthesia note for documentation of the administered medications Patient Profile: This is a 61 year old male. Refer to note in patient chart for documentation of history and physical. Last Colonoscopy: date unknown. Complications: No immediate complications. Procedure: Pre-Anesthesia Assessment: - Prior to the procedure, a History and Physical was performed, and patient medications and allergies were reviewed. The risks and benefits of the procedure and the sedation options and risks were discussed with the patient. All questions were answered and informed consent was obtained. Patient identification and proposed procedure were verified by the physician in the pre-procedure area. Mental Status Examination: alert and oriented. Airway Examination: normal oropharyngeal airway and neck mobility. Respiratory Examination: clear to auscultation. CV Examination: normal. Prophylactic Antibiotics: The patient does not require prophylactic antibiotics. Prior Anticoagulants: The patient has taken no previous anticoagulant or antiplatelet agents. ASA Grade Assessment: II - A patient with mild systemic disease. After reviewing the risks and benefits, the patient was deemed in satisfactory condition to undergo the procedure. The anesthesia plan was to use moderate sedation / analgesia (conscious sedation). Immediately prior to administration of medications, the patient was re-assessed for adequacy to receive sedatives. The heart rate, respiratory rate, oxygen saturations, blood pressure, adequacy of pulmonary ventilation, and response to care were monitored throughout the procedure. The physical status of the patient was re-assessed after the procedure. After I obtained informed consent, the scope was passed under direct vision. Throughout the procedure, the patient's blood pressure, pulse, and oxygen saturations were monitored continuously. The pediatric colonoscope was introduced through the anus and advanced to the terminal ileum. The colonoscopy was performed without difficulty. The patient tolerated the procedure well. The quality of the bowel preparation was good. Moderate Sedation: Moderate (conscious) sedation was administered by the endoscopy nurse and supervised by the endoscopist. The following parameters were monitored: oxygen saturation, heart rate, blood pressure, and response to care. Total physician intraservice time was 15 minutes. Scope In: 1:30:58 PM Scope Withdrawal Time 0 hours 14 minutes 31 seconds Scope Out: 1:48:31 PM Total Procedure Duration Time 0 hours 17 minutes 33 seconds Findings: The perianal and digital rectal examinations were normal. Three sessile polyps were found in the sigmoid colon and ascending colon. The polyps were 1 to 2 mm in size. These polyps were removed with a hot snare. Resection and retrieval were complete. Verification of patient identification for the specimen was done. Estimated blood loss was minimal. Internal hemorrhoids were found during retroflexion. The hemorrhoids were Grade II (internal hemorrhoids that prolapse but reduce spontaneously). A hemorrhoid was isolated with anoscopy. The ShortShot ligator was positioned over the hemorrhoid at the right anterior position. Suction was applied and one rubber band was placed over the hemorrhoid. This was checked to make certain that the muscularis was free of the band. Post-banding digital rectal exam showed band in good position. There were no complications. A patchy area of mucosa in the terminal ileum was granular. Biopsies were taken with a cold forceps for histology. Verification of patient identification for the specimen was done. Estimated blood loss was minimal. Impression: - Three 1 to 2 mm polyps in the sigmoid colon and in the ascending colon, removed with a hot snare. Resected and retrieved. - Internal hemorrhoids. Banded. -Mild proctitis was seen - Granularity in the terminal ileum. Biopsied. Recommendation: - Discharge patient to home. - Resume previous diet. - Continue present medications. - Await pathology results. - Repeat colonoscopy in 5 years for surveillance. - Return to GI office. Procedure Code(s): --- Professional --- 51619, Colonoscopy, flexible; with removal of tumor(s), polyp(s), or other lesion(s) by snare technique 19379, Colonoscopy, flexible; with band ligation(s) (eg, hemorrhoids) 08631, 59, Colonoscopy, flexible; with biopsy, single or multiple 01918, 59, Moderate sedation services provided by the same physician or other qualified health medicare biller performing the diagnostic or therapeutic service that the sedation supports, requiring the presence of an independent trained observer to assist in the monitoring of the patient's level of consciousness and physiological status; initial 15 minutes of intraservice time, patient age 5 years or older CPT copyright 2017 [employer]. All rights reserved. The codes documented in this report are preliminary and upon computer language coder review may be revised to meet current compliance requirements. Adelfo Valentin DO 01/05/2022 1:57:54 PM This report has been signed electronically. Number of Addenda: 1 Note Initiated On: 01/05/2022 1:21 PM Addendum Number: 1 Addendum Date: 06/30/2022 6:46:33 AM MAC was used as sedation for this procedure. Adelfo Valentin DO 06/30/2022 6:46:37 AM This report has been signed electronically.
--- NOTE | 2022-01-05 13:59 | OP.CCLET_ITS ---
06/30/2022 Denver Calix MD [address] [id number] Re : Colonoscopy procedure for [facility] Dear Dr. Calix This procedure was performed on Wednesday, January 05, 2022. My impressions and recommendations are as follows: Impressions : - Three 1 to 2 mm polyps in the sigmoid colon and in the ascending colon, removed with a hot snare. Resected and retrieved. - Internal hemorrhoids. Banded. -Mild proctitis was seen - Granularity in the terminal ileum. Biopsied. Recommendations : - Discharge patient to home. - Resume previous diet. - Continue present medications. - Await pathology results. - Repeat colonoscopy in 5 years for surveillance. - Return to GI office. My findings are described in the full procedure note, which is enclosed. If I can be of further assistance, please feel free to contact me at . Sincerely, Adelfo Friend, 01/05/2022 1:57:54 PM This report has been signed electronically.
== END 2022-01-05 23:59 | disposition home or self-care (01) ==
LOC: EN 11:30 → AC 11:30
PROVIDERS: PCP Family Medicine; Referring Provider Family Medicine; Visit Provider Internal Medicine Gastroenterology
PROC: 0DJD8ZZ Inspection of Lower Intestinal Tract, Via Natural or Artificial Opening Endoscopic (ICD-10-PCS; CPT 45378; principal; 2022-01-05 12:25)
DX: D12.2 Benign neoplasm of ascending colon (principal); D12.3 Benign neoplasm of transverse colon; K64.1 Second degree hemorrhoids; K62.89 Other specified diseases of anus and rectum; G47.33 Obstructive sleep apnea (adult) (pediatric); K21.9 Gastro-esophageal reflux disease without esophagitis; F41.9 Anxiety disorder, unspecified; F32.A Depression, unspecified; M19.90 Unspecified osteoarthritis, unspecified site; Z86.16 Personal history of COVID-19; Z79.899 Other long term (current) drug therapy
CPT/HCPCS: 45385; 45380; 45398; 88305; J7120; J2405

== ENCOUNTER → 2022-08-03 | Outpatient (CLI) | payer OTHER, SELFPAY ==
--- NOTE | 2022-08-03 08:01 | MRI_ITS ---
STUDY: MR PELVIS WITH T WITHOUT CONTRAST REASON FOR EXAM: Male, 62 years old. Perirectal/anal pain TECHNIQUE: Standardized fat and water weighted pulse sequences were obtained in all 3 orthogonal planes, pre-and post contrast administration. clariscan 17ml IV was administered for the contrast portion of the examination. COMPARISON: None. FINDINGS: Normal urinary bladder. Normal visualized small intestine. Normal visualized colon. No rectal wall thickening or perirectal inflammation. No focal abscess. No focal mass. There is no pelvic fluid. There is no pelvic mass lesion or lymphadenopathy. Normal visualized pelvic arteries. Bilateral hip replacements. Normal abdominal wall. MRI/Pelvis W/WO Contrast IMPRESSION: No focal fluid collection/abscess. Electronically Signed: Cyril Sloan (Brooks), at 10:52 EDT ,
[2022-08-03 08:29] LABS: Absolute Lymphocyte Count 1.85 X10^3/uL (0.83-4.51); Absolute Neutrophil Count 8.5 X10^3/uL (2.0-7.7); Basophil# 0.03 X10^3/uL; Basophil% 0.3 % (0-1); Eosinophil# 0.04 X10^3/uL; Eosinophils% 0.4 % (0-5); Hematocrit 39.6 % (40-54); Hemoglobin 12.5 g/dL (13.0-16.5); Lymphocyte # 1.85 X10^3/ul (0.83-4.51); Lymphocyte % 16.6 % (19-41); Mean Corp Hgb Conc 31.6 g/dL (32-36); Mean Corpuscular Hgb 25.1 pg (27.0-32.0); Mean Corpuscular Volume 79.4 fL (80-94); Monocyte# 0.64 X10^3/uL; Monocyte% 5.8 % (0-10); NRBC Flagged by Analyzer 0 % (0-5); Neutrophil # 8.52 X10^3/uL (2.7-7.7); Neutrophil % 76.5 % (47-70); Platelet Count 292 K/mm3 (150-450); RBC Distribution Width CV 14.6 % (11.6-14.6); RBC Distribution Width SD 42.3 fl (35.1-43.9); Red Blood Count 4.99 M/mm3 (4.6-6.2); White Blood Count 11.1 K/mm3 (4.4-11.0)
[2022-08-03 08:33] LABS: Erythrocyte Sedimentation Rate 14 mm/hr (0-20)
[2022-08-03 08:45] LABS: CREATININE FINGERSTICK < 0.9 mg/dL (0.70-1.30); EGFR FINGERSTICK > 60.0000 mL/min (>60)
[2022-08-03 09:01] LABS: ALB/GLOB Ratio 1.1 RATIO (0.9-2.4); AST(SGOT) 13 U/L (15-37); Alanine Aminotransfer ALT/SGPT 23 U/L (16-61); Albumin, Serum 3.7 g/dL (3.2-5.0); Alkaline Phosphatase 70 U/L (45-117); Anion Gap 4 (5-15); BUN 21 mg/dL (7-18); BUN/Creat Ratio 17.5 RATIO (10-20); CRP < 2.90 mg/L (0.0-3.0); Calcium,Total 8.8 mg/dL (8.5-10.1); Chloride 107 mmol/L (98-107); EST Glomerular Filtration Rate 65 mL/min (>60); Est Glom Filt Rate - Afr Amer 79 mL/min (>60); Globulin 3.3 g/dL (2.2-4.2); Glucose 110 mg/dL (74-106); LDH 195 U/L (87-241); Potassium 3.9 mmol/L (3.5-5.1); Sodium Level 140 mmol/L (136-145)
[2022-08-04 14:09] LABS: Anti-Centromere B Ab <0.2 AI (0.0-0.9); Anti-Chromatin <0.2 AI (0.0-0.9); Anti-Jo <0.2 AI (0.0-0.9); Anti-Scleroderma-70 AB <0.2 AI (0.0-0.9); Endomysial Antibody IgA Negative (Negative); RNP Ab <0.2 AI (0.0-0.9); SJOGREN'S Anti-SS-A test < 0.2 AI (0.0-0.9); SJOGREN'S Anti-SS-B test < 0.2 AI (0.0-0.9); Smith Ab <0.2 AI (0.0-0.9)
[2022-08-04 16:16] LABS: Anti-dsDNA Ab 1 IU/mL (0-9)
[2022-08-04 16:17] LABS: Immunoglobulin A 191 mg/dL (61-437); t-Transglutaminase IgA <2 U/mL (0-3)
[2022-08-07 21:13] LABS: Calprotectin, Stool 93 ug/g (0-120)
[2022-08-11 00:07] LABS: Albumin 3.6 g/dL (2.9-4.4); Alpha-1-Globulins 0.3 g/dL (0.0-0.4); Alpha-2-Globulins 0.7 g/dL (0.4-1.0); Cytoplasmic Ab (C-ANCA) <1:20 titer (Neg:<1:20); Immunoglobulin A 186 mg/dL (61-437); Immunoglobulin E 32 IU/mL (6-495); Immunoglobulin G 953 mg/dL (603-1613); Immunoglobulin M 58 mg/dL (20-172); PROEL- TOTAL PROTEIN 6.6 g/dL (6.0-8.5)
[2022-08-12 14:54] LABS: Perinuclear Ab (P-ANCA) <1:20 titer (Neg:<1:20)
== END | disposition home or self-care (01) ==
PROVIDERS: PCP Family Medicine; Referring Provider Internal Medicine Gastroenterology; Visit Provider Internal Medicine Gastroenterology
DX: K62.89 Other specified diseases of anus and rectum (principal); K64.9 Unspecified hemorrhoids
CPT/HCPCS: 36415; 72197; 80053; 82784; 82785; 83516; 83615; 83630; 83993; 84165; 85025; 85652; 86140; 86225; 86235; 86255; 86256; 86334; A9575

== ENCOUNTER 2022-09-02 09:48 | Outpatient (CLI) | payer OTHER, SELFPAY ==
--- NOTE | 2022-09-02 09:49 | MRI_ITS ---
EXAM: MR RIGHT UPPER EXTREMITY WITHOUT INTRAVENOUS CONTRAST, ELBOW CLINICAL INDICATION: Pain TECHNIQUE: Multiplanar and multisequence MR images of the right elbow without intravenous contrast. This report was created using [employer] report generation technology. COMPARISON: 04/29/20 FINDINGS: LIGAMENTS: MEDIAL COLLATERAL: Unremarkable. Intact. LATERAL COLLATERAL: Unremarkable. Intact. ANNULAR: Unremarkable. Intact. TENDONS: BICEPS: Unremarkable. Intact. BRACHIALIS: Unremarkable. Intact. TRICEPS: Focal low-grade partial thickness tearing involving the olecranon attachment of the triceps tendon. COMMON FLEXOR: Of the moderate tendinosis without tearing. COMMON EXTENSOR: Focal low-grade intrasubstance partial-thickness tearing involving the common extensor tendon origin. MUSCLES: Unremarkable. Normal bulk and signal. FLUID: Unremarkable. No joint effusion. CARTILAGE: Unremarkable. Articular cartilage intact. BONES/JOINTS: Small amount of elbow joint fluid without synovitis. Overall, moderate multicompartmental degenerative changes of the elbow. No fracture. No abnormal bone marrow signal. OTHER SOFT TISSUES: Unremarkable. The ulnar nerve is normal in the cubital tunnel. OTHER FINDINGS: 5 mm intra-articular body identified within the joint. MRI/Upper Ext Joint Only(Routine) IMPRESSION: 1. Focal low-grade intrasubstance partial-thickness tearing involving the common extensor tendon origin. 2. Focal low-grade partial thickness tearing involving the olecranon attachment of the triceps tendon. 3. Moderate osteoporosis of the elbow with 5 mm intra-articular body identified. Electronically Signed: Emmett Chiang MD at 3:45 EST ,
== END 2022-09-02 23:59 | disposition home or self-care (01) ==
LOC: MRI 09:49
PROVIDERS: PCP Family Medicine
DX: M19.021 Primary osteoarthritis, right elbow (principal); S56.511A Strain of other extensor muscle, fascia and tendon at forearm level, right arm, initial encounter
CPT/HCPCS: 73221

== ENCOUNTER 2022-09-28 12:26 | Day surgery (SDC) | payer OTHER, SELFPAY ==
[2022-09-28] VITALS (8 sets, daily range): BP systolic 135–155; BP diastolic 58–94; PULSE 50–81; RESP 12–18; TEMP 36.7–37.1; O2SAT 96–100
[2022-09-28] MEDS: Lactated Ringers 1,000 ML 15 ML IV (13:03)
--- NOTE | 2022-09-28 13:35 | PCM.HP.STD ---
HPI - General HPI Narrative ODIN WILSON, is a 62 M who presents for right elbow arthroscopy. No changes to h and p. RAB discussed, and narcotic counselling. Right elbow marked. ok to proceed. MR#: [id number] Acct: [id number] Name:ODIN MARY Rep #: [id number] : 1960 ? ? Provider: Dr. Stevo Sandoval MD Age/Sex:? 62/M ? ? Location: [facility] [place].[facility] Status: Signed Intake Intake Visit Reasons:?RIGHT ELBOW Chief Complaint: right elbow Accompanied by: Self Allergies hazelnut Allergy (Verified 08/11/22 15:08) Anaphylaxisphenylephrine [From Tony-Synephrine (phenylephrine)] Allergy (Verified 08/11/22 15:08) Anaphylaxis Medications esomeprazole magnesium 40 mg capsule,delayed release 40 mg PO DAILY 06/03/16 [History Confirmed 09/12/22] B-complex with vitamin C 1 cap PO DAILY 09/18/20 [History Confirmed 09/12/22] cholecalciferol (vitamin D3) 25 mcg (1,000 unit) capsule 25 mcg PO DAILY 09/18/20 [History Confirmed 09/12/22] psyllium husk 0.4 gram capsule (Daily Fiber) 0.4 g PO DAILY 09/18/20 [History Confirmed 09/12/22] naproxen 500 mg tablet 500 mg PO BID PRN Pain 1-10 Or Fever 10/26/20 [History Confirmed 09/12/22] paroxetine HCl 10 mg tablet 10 mg PO DAILY 10/26/20 [History Confirmed 09/12/22] trazodone 50 mg tablet 50 mg PO DAILY 06/14/21 [History Confirmed 09/12/22] hydrocortisone 2.5 % topical solution 1 applic topical TID 21 days #30 mL 07/21/22 [Rx Confirmed 09/12/22] prednisone 20 mg tablet 20 mg PO DAILY #60 tabs 07/21/22 [Rx Confirmed 09/12/22] PFSH Medical History?(Updated 09/12/22 @ 13:57 by Stevo Sandoval MD) Acute cholecystitis Anemia Anxiety Arthritis CPAP (continuous positive airway pressure) dependence Depression Gastric reflux GERD (gastroesophageal reflux disease) Hemorrhoids History of hiatal hernia Medial epicondylitis, left elbow Non-smoker Obesity RIMA (obstructive sleep apnea) Primary osteoarthritis, right elbow Right elbow pain Sleep apnea Wears glasses Surgical History? S/P hemorrhoidectomy S/P laparoscopic cholecystectomy S/P shoulder surgery Status post total hip replacement, bilateral Family History? Brother Hypertension Social History? Smoking Status:? Never smoker HPI RIGHT ELBOW Details: Parts of this documentation were recorded by a scribe, this documentation accurately reflects the service provided and the decisions made by me, Dr. Stevo Sandoval MD 09/12/22 1530. ODIN WILSON is a 62 year old M here today for? right elbow pain, stiffness, especially in flexion, dislocation 30 years ago, playing tennis is fine pain all around posteriorly and laterally. Worse is in flexion. Brushing teeth. 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 RHD. Feels like something blocking it. Ortho Exam General General: Yes no acute distress Neurologic: Yes alert and Yes oriented x3 Psychologic: Yes reasonable and appropriate Right Elbow Skin/Wound: Yes CDI, No eccymosis, No erythema and No Swelling ROM: Yes Supination 0-90 and Pronation 0-80 Test: No Varus Stress Test, No TTP Medial Epicondyle, No TTP Lateral Epicondyle, No Pain w/ resist 3rd dig ext, No Thenar Atrophy and No Ulnar Nerve Subluxation Sensation: Radial: I, Ulnar: I and Median: I Motor: Elbow Extension: 5, Elbow Flexion: 5, EPL: 5, FDP-2: 5 and 1st Dorsal Interosseous: 5 ELBOW: range of motion 30 to 105 degrees Pain at the extremes of range of motion.? Mild crepitus with range of motion testing. Left Elbow Skin/Wound: Yes CDI, No eccymosis, No erythema and No Swelling Test: No Valgus Stress Test, No Varus Stress Test, Yes TTP Medial Epicondyle, No TTP Lateral Epicondyle and Yes Pain w/ resist wrist flex ROM: Yes Flexion 0-140, Extension 0, Supination 0-90 and Pronation 0-80 Sensation: Radial: I, Ulnar: I and Median: I Motor: Elbow Extension: 5, Elbow Flexion: 5, EPL: 5, FDP-2: 5 and 1st Dorsal Interosseous: 5 Supplemental Info MR#:? [id number] Acct: [id number] Name:? ODIN WILSON Rep #: [id number] :?? 1960 M 62 ? From:? ? Emmett Chiang MD PCP: Dr. Denver Calix MD ? Status: REG CLI Study: Upper Ext? Joint Only(Routine) ? Date of Exam: 09/02/22 Exam# [id number] ? Ordering Dr:? Nataly Gomez EXAM:? MR RIGHT UPPER EXTREMITY WITHOUT INTRAVENOUS CONTRAST, ELBOW CLINICAL INDICATION:? Pain TECHNIQUE:? Multiplanar and multisequence MR images of the right elbow without intravenous contrast.? This report was created using [employer] report [employer] technology. COMPARISON:? 04/29/20 FINDINGS: LIGAMENTS: MEDIAL COLLATERAL:? Unremarkable.? Intact. LATERAL COLLATERAL:? Unremarkable.? Intact. ANNULAR:? Unremarkable.? Intact. TENDONS: BICEPS:? Unremarkable.? Intact. BRACHIALIS:? Unremarkable.? Intact. TRICEPS:? Focal low-grade partial thickness tearing involving the olecranon attachment of the triceps tendon. COMMON FLEXOR: Of the moderate tendinosis without tearing. COMMON EXTENSOR:? Focal low-grade intrasubstance partial-thickness tearing involving the common extensor tendon origin. MUSCLES:? Unremarkable.? Normal bulk and signal. FLUID:? Unremarkable.? No joint effusion. CARTILAGE:? Unremarkable.? Articular cartilage intact. BONES/JOINTS:? Small amount of elbow joint fluid without synovitis. Overall, moderate multicompartmental degenerative changes of the elbow.? No fracture.? No abnormal bone marrow signal. OTHER SOFT TISSUES:? Unremarkable.? The ulnar nerve is normal in the cubital tunnel. OTHER FINDINGS:? 5 mm intra-articular body identified within the joint. MRI/Upper Ext? Joint Only(Routine) IMPRESSION: ? 1.? Focal low-grade intrasubstance partial-thickness tearing involving the common extensor tendon origin. ? 2.? Focal low-grade partial thickness tearing involving the olecranon attachment of the triceps tendon. ? 3.? Moderate osteoporosis of the elbow with 5 mm intra-articular body identified. ? Electronically Signed: Emmett Chiang MD at 3:45 EST , X-rays taken today of the right elbow Show moderate degenerative changes. X-rays taken today of the left elbow mild degenerative changes Coding Level of Care Code Attention Process Control Engineer Diagnoses Right elbow pain? M25.521 Medial epicondylitis, left elbow? M77.02 Primary osteoarthritis, right elbow? M19.021 Time Spent (min) 45 Comment bill [id number] and inject tendon Assessment and Plan Assessment and Plan (1) Right elbow pain: ?Status:?Acute (3) Primary osteoarthritis, right elbow: ?Status:?Acute ?Plan: 62 year-old man has pain and stiffness from osteoarthritis and a loose body.? He has tried nonoperative management including physical therapy and stretching.? He is not interested in intra-articular cortisone injection or further conservative nonoperative management.? He wishes to go ahead with surgical treatment for this.? This would be right elbow arthroscopy debridement and removal of loose body.? He does not seem to be having any sort of pain from the medial or lateral epicondyle region.? Typical results from this surgery are gaining back about 50% of lost range of motion.? We discussed other risk like neurovascular injuries.? He wishes to go ahead and understands the pros and cons risks and benefits. Pros and cons risks and benefits were discussed with the patient including but not limited to infection, pain, stiffness, bleeding, damage to surrounding structures, neurovascular injury, recurrence or retear, failure or wear of hardware or fixation, instability, fracture, deep vein thrombosis and pulmonary embolism, anesthetic risks, patient dissatisfaction, need for further surgery and other risks.? Patient understood and wished to proceed with surgery, and signed the informed consent documentation. [facility] Medical History (Updated 09/22/22 @ 14:55 by Maile Novoa) Acute cholecystitis Anemia Anxiety Arthritis CPAP (continuous positive airway pressure) dependence Depression Gastric reflux History of hiatal hernia Medial epicondylitis, left elbow Non-smoker Obesity Primary osteoarthritis, right elbow Right elbow pain Wears glasses Home Medications esomeprazole magnesium 40 mg capsule,delayed release 40 mg PO DAILY 06/03/16 [History Last Taken 09/28/22] B-complex with vitamin C 1 cap PO DAILY 09/18/20 [History Last Taken 10/25/20] cholecalciferol (vitamin D3) 25 mcg (1,000 unit) capsule 25 mcg PO DAILY 09/18/20 [History Last Taken 10/25/20] psyllium husk 0.4 gram capsule (Daily Fiber) 0.4 g PO BID 09/18/20 [History Last Taken 10/25/20] naproxen 500 mg tablet 500 mg PO BID PRN Pain 1-10 Or Fever 10/26/20 [History Last Taken 10/25/20] paroxetine HCl 10 mg tablet 10 mg PO DAILY 10/26/20 [History Last Taken 10/25/20] trazodone 50 mg tablet 50 mg PO QHS 06/14/21 [History Last Taken Unknown] Allergy/AdvReac Type Severity Reaction Status Date / Time hazelnut Allergy Anaphylaxis Verified 09/28/22 13:00 phenylephrine Allergy Anaphylaxis Verified 09/28/22 13:00 [From Tony-Synephrine (phenylephrine)] Family History Brother Hypertension Surgical History (Updated 09/22/22 @ 14:55 by Maile Novoa) Hx of colonoscopy S/P hemorrhoidectomy S/P laparoscopic cholecystectomy S/P shoulder surgery Status post total hip replacement, bilateral Social History Smoking Status: Never smoker Vital Signs Vital Signs Vital Signs: 09/28/22 13:04 09/28/22 13:04 Temperature 98.7 F Temperature Source Temporal Pulse Rate 50 L Respiratory Rate 18 Respiratory Pattern Normal Blood Pressure 152/73 H Blood Pressure Mean 99 Blood Pressure Source Monitor Blood Pressure Position Semi-Fowlers Blood Pressure Location Right Arm Pulse Ox 99 Oxygen Delivery Method Room Air
[2022-09-28] MEDS: Cefazolin 2 GM in 0.9% Normal Saline 100 ML IV (15:35)
--- NOTE | 2022-09-28 17:34 | PCM.OPRPT ---
Problems Associated Problem List Diagnoses (1) Primary osteoarthritis, right elbow: (2) Right elbow pain: (3) Loose body in right elbow: Report of Operation Date of Procedure: 09/28/22 Pre-Operative Diagnosis: right elbow OA and loose body Post-Operative Diagnosis: same Surgery/Procedure Performed:: right elbow arthroscopy, debridement, removal loose bodies Surgeon: Stevo Sandoval Type of Anesthesia: General Anesthesiologist: Jamel Rivera Estimated Blood Loss (mL): 100 Description of Procedure: Patient brought to the operating room theater.? Placed supine on the operating room table.? All bony prominences appropriately padded.? SCDs on legs.? General anesthesia induced.? 2 g IV Ancef administered prior to the start of the procedure.? Patient transferred right side up lateral decubitus.? Axillary roll used.? 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 Upper extremity prepped and draped in the usual sterile fashion with chlorhexidine-based prep solution allowing over 3 minutes drying time prior to draping.?Western elbow positioner, 18 inch tourniquet with padding. Preoperative timeout performed to confirm the site patient and surgery. Began by insuflating joint with 20cc NS. Made standard VENKAT portal, 2cm proximal and 1cm posterior to medial epicondyle. Inside out spinal needle localization, to create proximal AL portal. Had narrowing of the joint, Grade 2 change at trochlea and mid aspect of the distal humerus. Radial head and capitellum cartilage Grade 1 changes. Debrided synovitis inside joint. Did a capsule release anterior distal humerus, minimally. Debrided lateral epicondyle area / ECRB for the pre operative signs of lateral epicondylitis, staying above the equator. Switched the arthroscope to other side, and finished the debridement. A large loose body anteriorly was removed piece meal as well. Scope pictures taken throughout. Next turned attention to posterior compartment. Used central and postero-lateral portals, then did have to make an accessory portal slightly medial to the 1st portal due to swelling to achieve mid line. Using alize and beatrice, again removed another loose body, the same size as anteriorly (5mm) from the posterior compartment. Debrided the tip of the olecranon, and the fossa as well as postero-medial. Achieved full flexion 135 after the procedure, extension still limited by about 5 degrees. Case terminated, tourniquet let down 73 mins. Skin cleaned, dried. 10cc 0.25 % bupivicaine for portals. 4-0 ethilon simple sutures, adaptic, 4x4 gauze and ABD with 6 inch shannon bandage, no sling. Patient woken up, transferred to PACU in stable condition. Complications none Admit VTE Documentation VTE Present on Admission: No VTE Mechan Device Prophylaxis: SCD's Reason prophylaxis not ordered:: Treatment Not Indicated Procedures Musculoskeletal 20xxx-29xxx: Other Procedure See Report
--- NOTE | 2022-09-28 17:45 | DCINST_ITS ---
Discharge Instructions Diet Discharge Diet: No restrictions Activity Additional Activity Instructions:: ROM as tolerated, no heavy lifting 6 weeks. Dressing / Incision Call your doctor if your incision/area has: Continuous Slow Oozing, Sudden Increased Bleeding, Increased Pain/ Swelling, Increased Redness, Foul Smelling Discharge and Swelling at the incision site Remove Dressing in: leave in place till F/U Follow Up Care Please Follow Up With: Stevo Sandoval MD When: 2 days Test Results: Test results from this visit will be discussed in further detail at your follow- up appointment, if applicable. Discharge Plan Admission Attending Provider: Stevo Sandoval Primary Care Provider: Denver Calix Discharge Orders/Prescriptions Prescriptions: New oxycodone-acetaminophen [Percocet] 5-325 mg tablet 1 tab PO Q4H MDD 6 PRN (Reason: pain) 7 Days Qty: 30 0RF No Action psyllium husk [Daily Fiber] 0.4 gram capsule 0.4 g PO BID B-complex with vitamin C Capsule 1 cap PO DAILY cholecalciferol (vitamin D3) 25 mcg (1,000 unit) capsule 25 mcg PO DAILY trazodone 50 mg tablet 50 mg PO QHS esomeprazole magnesium 40 MG capsule 40 mg PO DAILY paroxetine HCl 10 MG tablet 10 mg PO DAILY naproxen 500 MG tablet 500 mg PO BID PRN (Reason: Pain 1-10 Or Fever) Referrals / Follow Up: Denver Cailx MD [Primary Care Provider] - Stevo Sandoval MD [Med Staff - Active Staff] -
== END 2022-09-28 20:02 | disposition home or self-care (01) ==
LOC: SDC 12:28 → AC 12:29
PROVIDERS: PCP Family Medicine; Referring Provider Orthopaedic Surgery Sports Medicine; Visit Provider Orthopaedic Surgery Sports Medicine
PROC: (CPT 29830; principal; 2022-09-28 13:40)
DX: M19.021 Primary osteoarthritis, right elbow (principal); M77.10 Lateral epicondylitis, unspecified elbow; M81.0 Age-related osteoporosis without current pathological fracture; M77.02 Medial epicondylitis, left elbow; K21.9 Gastro-esophageal reflux disease without esophagitis; F41.9 Anxiety disorder, unspecified; E66.9 Obesity, unspecified; Z68.29 Body mass index [BMI] 29.0-29.9, adult
CPT/HCPCS: 29837; J7120; J2405

== ENCOUNTER 2022-11-03 11:00 | Outpatient (RCR) | payer OTHER, SELFPAY ==
--- NOTE | 2022-10-07 10:38 | HP.PTEVAL ---
Patient's Visit Information ODIN WILSON is a 62 year old M referred to Physical Therapy by Dr. Stevo Sandoval MD with a diagnosis of Loose body R elbow s/p surgery 09/28/22. Date of Evaluation: 10/07/22 Physical Therapist: Torsten Manzanares, DPT, OCS, CSCS - Visit Plan Frequency: 1-2x /Week Duration: 4-6 Weeks Plan: 1-2x/week as needed for 4-6 as needed for. 1. ensure improving ROM and progress to gentle strength and functional progression as tolerated. If ROM stagnates then increase to 2x/week and include STM and manual. - Subjective Had R elbow scope one week ago on 09/28. Wants therapy to look at strength and ROm. Previously had pain and limited ROM for R elbow for one year after a fall a couple years ago. Doctor cleaned it out. Patient still has some pain in R elbow but is not avoiding much activitiy except lifting > 10#. Pain this week is up to 4/10 , 0/10 at rest. Lifting up to side of his head is 4/10 trasniently. Stretching it out is a dull 2/10 ache. Sleep is good. Retired. BAsic ADLs are happeing, Flossing, brushing hair, cleaning R ear is tough with pain and limited but was prior to surgery. Hobbies include tennis and golf and gardening. Is R handed and was able to do them last year. - Pain R elbow Pain Intensity (Out of 10): 0 Pain Intensity Range: 0, 4 - Objective Rebow AROM 110 flexion and 140 L , R is 119 after ROM ex. extension. -8 on right/ R is -5 after ROM ex. L extension is full. Other shoulder wrist and hand ROm is full and without pain. scapula motion is full. strength in shoulder and wrsit and hand are 4/5 R without pain, elbow flexion and extension tested gently and can resist without much discomfort. Incisions are bandaged and appear dry , no signs of excessive redness, heat or swelling. - Balance/Special Test Scores Quick DASH Score: 34.0900 - Goals Goal 1:: AROM R elbow to within 5 degrees of L elbow flexion adn full extension Goal Time Frame: 2-4 Weeks Goal 2:: I management of strength, ROM and progression of function toward tennis and golf Goal Time Frame: 4-6 Weeks - Rehabilitation Potential Physical Therapy Diagnosis: R elbow limited ROM limiting function. Rehabilitation Potential: Good - Anticipated Interventions Patient/Client Instruction: Educate patient on: Condition, Plan of Care For the Purpose of:: To decrease pain, To increase ROM, To improve ability of physical actions for home/community/work/leisure Therapeutic Exercise to Include: Strength training, Flexibilty training, Passive ROM, Active ROM For the Purpose of:: To decrease pain, To increase ROM, To improve muscle performance and motor function, To improve ability of physical actions for home/community/work/leisure Thank you for the opportunity to evaluate your patient. For Medicare and Medicare HMO plans, please review the plan of care and approve it. It will need to be FAXED BACK to us at [phone] for Medicare purposes. For Medicare only, by signing this I certify the plan of care. Please let me know if there are questions or concerns regarding this plan of care. Physician Signature: Date:
--- NOTE | 2022-11-03 11:21 | HP.PTREVAL ---
Dr. Stevo Sandoval MD, It has been my pleasure to treat ODIN WILSON over the last 4 visits for Loose body R elbow s/p surgery 09/28/22. Please see the progress note below for an update on the physical therapy plan of care! 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 Played tennis this morning without any twinges. Played for 90 minutes. Motion seems good and very functional, able to get behind head and to teeth adn ears. Feels like he is good to go if he keeps doing exercises. To doctor tomorrow. Objective/Function: 132 prom FLEXION AND -3 EXTENSION, slowly improving. Strength is symmetrical. Good function as he is able to get hand behind head and to mouth and ear. Tennis and golf not a problem. Plan Plan: pt to doctor tomorrow and thinks he can continue via HEP on his own. To call after doctor visit for cotninuation of mobs/PROM, STM or d/c. Balance/Gait/Functional tests - Balance/Special Test Scores Quick DASH Score: 9.0900 Goals Goal 1:: AROM R elbow to within 5 degrees of L elbow flexion adn full extension Goal Time Frame: 2-4 Weeks Goal Progress: about 10 degree differenc Goal 2:: I management of strength, ROM and progression of function toward tennis and golf Goal Time Frame: 4-6 Weeks Goal Progress: Goal Met Anticipated Interventions Patient/Client Instruction: Educate patient on: Condition, Plan of Care For the Purpose of:: To decrease pain, To increase ROM, To improve ability of physical actions for home/community/work/leisure Therapeutic Exercise to Include: Strength training, Flexibilty training, Passive ROM, Active ROM For the Purpose of:: To decrease pain, To increase ROM, To improve muscle performance and motor function, To improve ability of physical actions for home/community/work/leisure Please do not hesitate to contact me at [phone] by phone or if you have questions or concerns regarding this new plan of care! Sincerely, Torsten Manzanares, DPT, OCS, CSCS
--- NOTE | 2023-01-18 09:18 | HP.PTDCSUM ---
It has been my pleasure to treat ODIN WILSON referred by Dr. Stevo Sandoval MD, with the diagnosis of Loose body R elbow s/p surgery 09/28/22 for a total of 4 visit(s). Discharge Date: Please see the following information for a summary of their discharge status. 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 Played tennis this morning without any twinges. Played for 90 minutes. Motion seems good and very functional, able to get behind head and to teeth adn ears. Feels like he is good to go if he keeps doing exercises. To doctor tomorrow. R elbow Pain Intensity (Out of 10): 0 % Improvement: 50 Objective/Function: 132 prom FLEXION AND -3 EXTENSION, slowly improving. Strength is symmetrical. Good function as he is able to get hand behind head and to mouth and ear. Tennis and golf not a problem. Goal 1:: AROM R elbow to within 5 degrees of L elbow flexion adn full extension Goal Progress: about 10 degree differenc Goal 2:: I management of strength, ROM and progression of function toward tennis and golf Goal Progress: Goal Met Plan: pt to doctor tomorrow and thinks he can continue via HEP on his own. To call after doctor visit for cotninuation of mobs/PROM, STM or d/c. If there are questions or concerns regarding this patient's physical therapy, please feel free to call me at [phone]. Thank you for the referral of this patient. Sincerely, Torsten Manzanares, DPT, OCS, CSCS Balance/Gait/Functional tests - Balance/Special Test Scores Quick DASH Score: 9.0900
== END 2022-11-03 19:00 | disposition home or self-care (01) ==
LOC: PT 11:00
PROVIDERS: PCP Family Medicine; Referring Provider Orthopaedic Surgery Sports Medicine; Visit Provider Orthopaedic Surgery Sports Medicine
DX: M24.021 Loose body in right elbow (principal)
CPT/HCPCS: 97110; 97140; 97161; 97164

== ENCOUNTER → 2023-01-12 | Outpatient (CLI) | payer OTHER, SELFPAY ==
[2023-01-12 17:47] LABS: Absolute Lymphocyte Count 1.47 X10^3/uL (0.83-4.51); Absolute Neutrophil Count 3.3 X10^3/uL (2.0-7.7); Basophil# 0.05 X10^3/uL; Basophil% 0.9 % (0-1); Eosinophil# 0.38 X10^3/uL; Eosinophils% 6.8 % (0-5); Hematocrit 43.4 % (40-54); Hemoglobin 13.9 g/dL (13.0-16.5); Lymphocyte # 1.47 X10^3/ul (0.83-4.51); Lymphocyte % 26.4 % (19-41); Mean Corpuscular Hgb 26.8 pg (27.0-32.0); Mean Corpuscular Volume 83.8 fL (80-94); Mean Platelet Vol. 9.7 fl (6.2-12.0); Monocyte# 0.38 X10^3/uL; Monocyte% 6.8 % (0-10); NRBC Flagged by Analyzer 0 % (0-5); Neutrophil # 3.27 X10^3/uL (2.7-7.7); Neutrophil % 58.7 % (47-70); Platelet Count 217 K/mm3 (150-450); RBC Distribution Width CV 17.8 % (11.6-14.6); Red Blood Count 5.18 M/mm3 (4.6-6.2); White Blood Count 5.6 K/mm3 (4.4-11.0)
[2023-01-12 18:16] LABS: Vitamin D,25 Hydroxy 50.8 ng/mL
[2023-01-12 18:28] LABS: Anion Gap 3 (5-15); BUN 17 mg/dL (7-18); BUN/Creat Ratio 14.8 RATIO (10-20); Calcium,Total 8.8 mg/dL (8.5-10.1); Chloride 111 mmol/L (98-107); Cholesterol 168 mg/dL (200); Creatinine, Serum 1.15 mg/dL (0.70-1.30); EST Glomerular Filtration Rate 68 mL/min (>60); Est Glom Filt Rate - Afr Amer 82 mL/min (>60); Glucose 95 mg/dL (74-106); High Density Lipoprotein 63 mg/dL; Iron 209 ug/dL (65-175); Iron Binding Capacity,Total 341 ug/dL (250-450); PERCENT IRON SATURATION 61.3 % (15.0-55.0); PSA,Total - Annual Screen 1.22 ng/mL (0.00-4.00); Potassium 4.2 mmol/L (3.5-5.1); Sodium Level 139 mmol/L (136-145); Thyroid Stim Hormone (TSH) 1.97 uIU/mL (0.358-3.74); Triglycerides 75 mg/dL; Very Low Density Lipoprotein 15 mg/dL (5-40)
== END | disposition home or self-care (01) ==
LOC: MFPLAB 14:35
PROVIDERS: PCP Family Medicine; Referring Provider Family Medicine; Visit Provider Family Medicine
DX: Z00.00 Encounter for general adult medical examination without abnormal findings (principal); E55.9 Vitamin D deficiency, unspecified; D64.9 Anemia, unspecified
CPT/HCPCS: 36415; 80048; 80061; 82306; 83540; 83550; 84153; 84403; 84443; 85025; G0103

== ENCOUNTER → 2024-01-15 | Outpatient (CLI) | payer OTHER, SELFPAY ==
[2024-01-15 12:42] LABS: Absolute Neutrophil Count 2.6 X10^3/uL (2.0-7.7); Basophil# 0.04 X10^3/uL; Basophil% 0.9 % (0-1); Eosinophil# 0.21 X10^3/uL; Eosinophils% 4.6 % (0-5); Hematocrit 45.4 % (40-54); Hemoglobin 14.9 g/dL (13.0-16.5); Lymphocyte % 28.6 % (19-41); Mean Corp Hgb Conc 32.8 g/dL (32-36); Mean Corpuscular Hgb 28.9 pg (27.0-32.0); Mean Corpuscular Volume 88.2 fL (80-94); Mean Platelet Vol. 9.9 fl (6.2-12.0); Monocyte# 0.36 X10^3/uL; Monocyte% 7.9 % (0-10); NRBC Flagged by Analyzer 0 % (0-5); Neutrophil # 2.62 X10^3/uL (2.7-7.7); Neutrophil % 57.8 % (47-70); Platelet Count 251 K/mm3 (150-450); RBC Distribution Width CV 12.6 % (11.6-14.6); RBC Distribution Width SD 41.3 fl (35.1-43.9); Red Blood Count 5.15 M/mm3 (4.6-6.2); White Blood Count 4.5 K/mm3 (4.4-11.0)
[2024-01-15 13:33] LABS: Anion Gap 3 (5-15); BUN 17 mg/dL (7-18); BUN/Creat Ratio 14.2 RATIO (10-20); Calcium,Total 9.1 mg/dL (8.5-10.1); Chloride 111 mmol/L (98-107); Cholesterol 172 mg/dL (200); EST Glomerular Filtration Rate 65 mL/min (>60); Est Glom Filt Rate - Afr Amer 78 mL/min (>60); Glucose 98 mg/dL (74-106); High Density Lipoprotein 59 mg/dL; Potassium 4.2 mmol/L (3.5-5.1); Sodium Level 141 mmol/L (136-145); Triglycerides 85 mg/dL; Very Low Density Lipoprotein 17 mg/dL (5-40)
== END | disposition home or self-care (01) ==
LOC: MFPLAB 10:13
PROVIDERS: PCP Family Medicine; Visit Provider Family Medicine
DX: Z00.00 Encounter for general adult medical examination without abnormal findings (principal)
CPT/HCPCS: 36415; 80048; 80061; 84153; 85025

== ENCOUNTER 2024-09-04 14:17 | Outpatient (CLI) | payer OTHER, SELFPAY ==
[2024-09-04 18:03] LABS: Basophil# 0.05 X10^3/uL; Eosinophil# 0.16 X10^3/uL; Eosinophils% 3.3 % (0-5); Hematocrit 47.5 % (40-54); Hemoglobin 15.5 g/dL (13.0-16.5); Lymphocyte % 26.5 % (19-41); Mean Corp Hgb Conc 32.6 g/dL (32-36); Mean Corpuscular Hgb 28.7 pg (27.0-32.0); Mean Corpuscular Volume 87.8 fL (80-94); Mean Platelet Vol. 10.6 fl (6.2-12.0); Monocyte% 8.1 % (0-10); NRBC Flagged by Analyzer 0 % (0-5); Neutrophil # 2.98 X10^3/uL (2.7-7.7); Neutrophil % 60.7 % (47-70); Platelet Count 252 K/mm3 (150-450); RBC Distribution Width SD 38.6 fl (35.1-43.9); Red Blood Count 5.41 M/mm3 (4.6-6.2); White Blood Count 4.9 K/mm3 (4.4-11.0)
[2024-09-04 18:23] LABS: ALB/GLOB Ratio 1.1 RATIO (0.9-2.4); AST(SGOT) 17 U/L (15-37); Alanine Aminotransfer ALT/SGPT 21 U/L (16-61); Albumin, Serum 3.8 g/dL (3.2-5.0); Alkaline Phosphatase 106 U/L (45-117); Anion Gap 6 (5-15); BUN 15 mg/dL (7-18); BUN/Creat Ratio 10.6 RATIO (10-20); Calcium,Total 8.9 mg/dL (8.5-10.1); Chloride 112 mmol/L (98-107); Creatinine, Serum 1.41 mg/dL (0.70-1.30); EST Glomerular Filtration Rate 54 mL/min (>60); Est Glom Filt Rate - Afr Amer 65 mL/min (>60); Ferritin 17 ng/mL (26-388); Globulin 3.4 g/dL (2.2-4.2); Glucose 94 mg/dL (74-106); Iron 109 ug/dL (65-175); Iron Binding Capacity,Total 395 ug/dL (250-450); Potassium 3.7 mmol/L (3.5-5.1); Protein, Total 7.2 g/dL (6.4-8.2); Sodium Level 141 mmol/L (136-145)
== END 2024-09-04 23:59 | disposition home or self-care (01) ==
LOC: MFPLAB 14:17
PROVIDERS: PCP Family Medicine; Referring Provider Family Medicine; Visit Provider Family Medicine
DX: R53.83 Other fatigue (principal); D64.9 Anemia, unspecified
CPT/HCPCS: 36415; 80053; 82728; 83540; 83550; 84443; 85025

== ENCOUNTER → 2025-01-02 | Outpatient (CLI) | payer MEDICARE, SELFPAY ==
--- NOTE | 2025-01-02 09:46 | RAD_ITS ---
PROCEDURE: CERV SPINE OBL/FLEX/EXT COMP 01/02/2025 REASON FOR EXAM: CERVICALGIA TECHNIQUE: 8 views of the cervical spine. AP, lateral, flexion-extension, bilateral oblique, open-mouth odontoid and swimmer's COMPARISON: None available FINDINGS: The cervical spine is visualized on the lateral view from the skull base to C7. The C7-T1 alignment appears within limits on the swimmer's view. C5-6 moderate to severe appearing spondylosis/discogenic change. Mild to moderate appearing disc space narrowing C6-7. No prevertebral soft tissue swelling. No fracture or malalignment. No evidence of instability on flexion-extension views. Suggestion of moderate foraminal narrowing on the left at C5-6. Bilateral right more than left facet degenerative changes. Odontoid partially overlaps with the skull base. Lateral masses appear within limits. RAD/Cerv Spine Obl/Flex/Ext Comp IMPRESSION: No fracture or malalignment. C5-6 and C6-7 spondylosis/discogenic change as above. Reading Location: [id number]
[2025-01-02 12:22] LABS: Absolute Lymphocyte Count 1.53 X10^3/uL (0.83-4.51); Absolute Neutrophil Count 2.9 X10^3/uL (2.0-7.7); Basophil# 0.05 X10^3/uL; Eosinophil# 0.31 X10^3/uL; Eosinophils% 5.9 % (0-5); Hematocrit 42.5 % (40-54); Hemoglobin 13.9 g/dL (13.0-16.5); Lymphocyte # 1.53 X10^3/ul (0.83-4.51); Lymphocyte % 29.1 % (19-41); Mean Corp Hgb Conc 32.7 g/dL (32-36); Mean Corpuscular Hgb 27.5 pg (27.0-32.0); Monocyte# 0.45 X10^3/uL; Monocyte% 8.6 % (0-10); NRBC Flagged by Analyzer 0 % (0-5); Platelet Count 255 K/mm3 (150-450); RBC Distribution Width CV 13.2 % (11.6-14.6); RBC Distribution Width SD 40.1 fl (35.1-43.9); Red Blood Count 5.06 M/mm3 (4.6-6.2); White Blood Count 5.3 K/mm3 (4.4-11.0)
[2025-01-02 14:05] LABS: ALB/GLOB Ratio 1.5 RATIO (0.9-2.4); AST(SGOT) 21 U/L (<=37); Alanine Aminotransfer ALT/SGPT 14 U/L (<=46); Albumin, Serum 4.2 g/dL (3.4-4.8); Alkaline Phosphatase 92 U/L (40-129); Anion Gap 12 (5-15); BUN 17 mg/dL (4-19); BUN/Creat Ratio 14.8 RATIO (10-20); Calcium,Total 9.1 mg/dL (7.6-11.0); Carbon Dioxide 21.7 mmol/L (21.0-32.0); Chloride 108 mmol/L (98-108); Creatinine, Serum 1.16 mg/dL (0.70-1.20); EST Glomerular Filtration Rate 70 (>60); Globulin 2.9 g/dL (2.2-4.2); Glucose 93 mg/dL (70-99); Lipase 24 U/L (13-75); Sodium Level 141 mmol/L (133-145); Total Bilirubin 0.47 mg/dL (0.00-1.30)
== END | disposition home or self-care (01) ==
PROVIDERS: PCP Family Medicine; Referring Provider Family Medicine; Visit Provider Family Medicine
DX: R10.9 Unspecified abdominal pain (principal); M54.2 Cervicalgia
CPT/HCPCS: 36415; 72052; 80053; 83690; 85025

== ENCOUNTER → 2025-01-21 | Outpatient (CLI) | payer MEDICARE, SELFPAY ==
--- NOTE | 2025-01-21 11:36 | RAD_ITS ---
PROCEDURE: LUMBAR SPINE 2 OR 3 VIEWS 01/21/2025 REASON FOR EXAM: LOW BACK PAIN, LEFT LEG NUMBNESS TECHNIQUE: 2 view(s) of the lumbar spine COMPARISON: None FINDINGS: Vertebrae: There are 5 lumbar-type vertebral bodies below the last set of paired ribs. The vertebral body heights are within normal limits. Mild degenerative changes are noted. Discs: There is disc space narrowing involving the L4-L5 and L5-S1 discs. This is most pronounced at the L5-S1 disc. There is bony encroachment on the neural foramina at these levels. There is also slight disc space narrowing involving the posterior aspect of the L1-L2, L2-L3 and L3-L4 disc. Alignment: There is a subtle dextroscoliosis of the lumbar spine. Other: Radiopaque hip devices are noted bilaterally. The visualized portions appear to be intact without evidence of fracture or loosening. RAD/Lumbar Spine 2 or 3 Views IMPRESSION: Mild degenerative changes of the lumbar spine. Degenerative disc disease involving all of the lumbar discs as described above. This is most pronounced at the L5-S1 level. Subtle dextroscoliosis of the lumbar spine. Reading Location: [id number]
== END | disposition home or self-care (01) ==
LOC: MTRAD 11:35
PROVIDERS: PCP Family Medicine; Referring Provider Family Medicine; Visit Provider Family Medicine
DX: M54.50 Low back pain, unspecified (principal)
CPT/HCPCS: 72100

== ENCOUNTER → 2025-01-29 | Outpatient (CLI) | payer MEDICARE, SELFPAY ==
[2025-01-29 18:12] LABS: Cholesterol 182 mg/dL (<=200); High Density Lipoprotein 52 mg/dL; Low Density Lipoprotein Calc. 103 mg/dL; PSA,Total - Annual Screen 1.31 ng/mL (0.02-4.00); Triglycerides 137 mg/dL; Very Low Density Lipoprotein 27 mg/dL (5-40); cholesterol:hdl ratio screen 3.52
== END | disposition home or self-care (01) ==
LOC: MFPLAB 14:39
PROVIDERS: PCP Family Medicine; Referring Provider Family Medicine; Visit Provider Family Medicine
DX: Z00.00 Encounter for general adult medical examination without abnormal findings (principal)
CPT/HCPCS: 36415; 80061; 84153; G0103

== ENCOUNTER 2025-03-13 10:00 | Outpatient (RCR) | payer MEDICARE, SELFPAY ==
--- NOTE | 2025-01-29 12:57 | HP.PTEVAL ---
Patient's Visit Information Visit Information Visit Information: ODIN WILSON is a 64 year old M referred to Physical Therapy by Dr. Denver Calix MD with a diagnosis of CERVICAL AND LUMBAR SPINE PAIN. Date of Evaluation: 01/29/25 Physical Therapist: Audie Cee, PT, Cert MDT, OCS Visit Plan Frequency: 2x /Week Duration: 4 Weeks Plan: PT INTERVENTIONS DLS ,POSTURAL EX'S ,VALERIE EX'S MEET , LE FLEXABILITY ,ICTX FOR CERVICAL X15 MINS AND MODALITIES NEEDED Subjective Subjective: This 64 y/o male presents to physical therapy with cervical radiculopathy and lumbar pain. Patient has left cervical radiculopathy and leg symptoms for ~ 3 months. Patient has had x-rays showed cervical C5-6 moderate to severe appearing spondylosis/discogenic change. x-rays lumbar Degenerative disc disease involving all of the lumbar discs as described above. Patient location of symptoms cervical radiculopathy left shoulder to arm . Patient has paresthesia/tingling left arm. Aggravating factors extension extension ,turning . Alleviating factors rest ,meloxicam. C/O LOPEZ ,occiput ,denies dizziness /nausea. Patient pain affects sleeping . Patient seen chiropractor tried adjustments. Patient needs PT prior to MRI. Location left lumbar occasional paresthesia/tingling left leg. Aggravating factors bending ,lifting. Alleviating factors walking and standing . Tried cervical traction. Coughing/sneezing-. Bowel/bladder - . Patient pain affects QOL and function /housework tasks. SOCIAL: VOCATION: retired HOBBIES: tennis and is active Pain Bilateral Neck: Pain Intensity (Out of 10): 5 Pain Intensity Range: 9 Bilateral Back: Pain Intensity (Out of 10): 3 Pain Intensity Range: 10 Objective Objective: POSTURE: mild forward posture GAIT: reciprocal pattern PALPATION: tender OA/occiput NEURO: denies paresthesia/tingling , reflexes L3-4,L4-5,L5-S1 2/3 CERVICAL ROM: flexion min loss ,rotation mod loss ,lateral flexion mod loss ,extension mod loss BUE AROM: WFL MMT: BUE 4/5 grossly LUMBAR ROM: flexion min loss ,extension mod loss ,side glides mod FLEXABILITY: hamstrings mod tight MMT: QUADS/HAMS 4/5 ,hip flexion 4-/5 ,ankle 4/5 Special Tests C/S Radiculapathy - Left Upper limb tension test: Negative C/S Radiculapathy - Right Upper limb tension test: Negative C/S Radiculapathy - Left [place]: Positive C/S Radiculapathy - Right [place]: Negative C/S Radiculapathy - Left Cervical distraction: Negative C/S Radiculapathy - Right Cervical distraction: Negative C/S Radiculapathy - Left Relief test: Negative C/S Radiculapathy - Right Relief test: Negative Sharp Mehdi: Negative Vertebral Artery Test: Negative Alar Ligament Test: Negative Cervical Sitting: Protrusion - Mechanical Response: No effect Cervical Sitting: Protrusion - Symptoms During Testing: Increases Cervical Sitting: Protrusion - Symptoms After Testing: No worse Cervical Sitting: Retraction - Mechanical Response: No effect Cervical Sitting: Retraction - Symptoms During Testing: Increases Cervical Sitting: Retraction - Symptoms After Testing: No worse Cervical Sitting: Retraction-Extension - Mechanical Response: No effect Cerv Sitting: Retraction-Extension - Symptoms During Testing: Increases Cerv Sitting: Retraction-Extension - Symptoms After Testing: No worse Cervical Sitting: Sidebend Right - Mechanical Response: No effect Cervical Sitting: Sidebend Right - Symptoms During Testing: Increases Cervical Sitting: Sidebend Right - Symptoms After Testing: No worse Cervical Sitting: Sidebend Left - Mechanical Response: No effect Cervical Sitting: Sidebend Left - Symptoms During Testing: Increases Cervical Sitting: Sidebend Left - Symptoms After Testing: No worse Cervical Sitting: Rotation Right - Mechanical Response: No effect Cervical Sitting: Rotation Right - Symptoms During Testing: Increases Cervical Sitting: Rotation Right - Symptoms After Testing: No worse Cervical Sitting: Rotation Left - Mechanical Response: No effect Cervical Sitting: Rotation Left - Symptoms During Testing: Increases Cervical Sitting: Rotation Left - Symptoms After Testing: No worse Cervical Sitting: Flexion - Mechanical Response: No effect Cervical Sitting: Flexion - Symptoms During Testing: No effect Cervical Sitting: Flexion - Symptoms After Testing: No effect L/S Slump test left side: Negative L/S Slump test right side: Negative L/S Left Straight Leg Raise: Negative L/S Right Straight Leg Raise: Negative Lumbar Standing: Flexion - Mechanical Response: No effect Lumbar Standing: Flexion - Symptoms During Testing: No effect Lumbar Standing: Flexion - Symptoms After Testing: No effect Lumbar Standing: Extension - Mechanical Response: No effect Lumbar Standing: Extension - Symptoms During Testing: Increases Lumbar Standing: Extension - Symptoms After Testing: No worse Lumbar Standing: Right Side Glides - Mechanical Response: No effect Lumbar Standing: Right Side [place] - Symptoms During Testing: No effect Lumbar Standing: Right Side [place] - Symptoms After Testing: No effect Lumbar Standing: Left Side [place] - Mechanical Response: No effect Lumbar Standing: Left Side [place] - Symptoms During Testing: No effect Lumbar Standing: Left Side [place] - Symptoms After Testing: No effect Balance/Special Test Scores Oswestry Neck Score: 16 Goals Goal 1:: Patient to be I with HEP for cervical spine and back Goal Time Frame: 4-6 Weeks Goal 2:: Patient to improve lumbar ROM and cervical ROM for function of recovery for driving and tennis Goal Time Frame: 4-6 Weeks Goal 3:: Patient to demonstrate 50 % reduction of symptoms and and decrease function Goal Time Frame: 4-6 Weeks Goal 4:: Patient to improve neck oswestry score by 5 points to improve QOL and function Goal Time Frame: 4-6 Weeks Goal 5:: Patient to improve ability to participate with hobbies and tennis w/o recurrent symptoms Goal Time Frame: 4-6 Weeks Rehabilitation Potential Physical Therapy Diagnosis: This patient has lumbar pain with possible disc derangement and cervical spine stenosis with pain with positioning and motion testing thus benefit from skilled PT and possible MRI if symptoms don't get better Rehabilitation Potential: Good Anticipated Interventions Patient/Client Instruction: Educate patient on: Condition and Plan of Care For the Purpose of:: To decrease pain, To increase ROM, To improve muscle performance and motor function, To improve ability to perform ADL's, To increase tolerance to activity/condition/position, To improve performance and independence with ADL's, To improve ability of physical actions for home/community/work/leisure, To increase flexibility/ROM and To improve tolerance to ADL's Therapeutic Exercise to Include: Strength training, Body mechanics, Postural training, Flexibilty training, Dynamic Lumbar Stabilization and Valerie Exercises For the Purpose of:: To decrease pain, To increase ROM, To improve muscle performance and motor function, To improve ability to perform ADL's, To increase tolerance to activity/condition/position, To improve ability of physical actions for home/community/work/leisure, To improve health of tissue, To decrease soft tissue restriction, To increase flexibility/ROM, To reduce risk of recurrence and To improve tolerance to ADL's TENS: Yes IF ES: Yes Cryotherapy (ice pack, ice massage): Yes Thermo therapy (hot pack): Yes Ultrasound (thermal/non thermal): Yes Intermittent cervical traction: Yes For the Purpose of:: To decrease pain, To increase ROM, To improve nutrient delivery to tissue, To increase oxygenation perfusion, To improve health of tissue and To decrease soft tissue restriction Text: Thank you for the opportunity to evaluate your patient. For Medicare and Medicare HMO plans, please review the plan of care and approve it. It will need to be FAXED BACK to us at [phone] for Medicare purposes. For Medicare only, by signing this I certify the plan of care. Please let me know if there are questions or concerns regarding this plan of care. Physician Signature: Date:
--- NOTE | 2025-03-13 10:29 | HP.PTDCSUM ---
Discharge Summary D/C summary: It has been my pleasure to treat ODIN WILSON referred by Dr. Denver Calix MD, with the diagnosis of CERVICAL AND LUMBAR SPINE PAIN for a total of 8 visit(s). Discharge Date: 03/13/25 Please see the following information for a summary of their discharge status. Subjective Subjective: Patient overall better ,playing tennis and golfing no pain after or during Not specific activities ,maybe sitting Pain Bilateral Neck: Pain Intensity (Out of 10): 2 Bilateral Back: Pain Intensity (Out of 10): 2 Overall Improvement % Improvement: 60 Objective Objective/Function: POSTURE: mild forward posture GAIT: reciprocal pattern PALPATION: tender OA/occiput NEURO: denies paresthesia/tingling , reflexes L3-4,L4-5,L5-S1 2/3 CERVICAL ROM: flexion min loss ,rotation mod loss ,lateral flexion mod loss ,extension mod loss BUE AROM: WFL MMT: BUE 4/5 grossly LUMBAR ROM: flexion min loss ,extension mod loss ,side glides mod FLEXABILITY: hamstrings mod tight MMT: QUADS/HAMS 4/5 ,hip flexion 4-/5 ,ankle 4/5 Goals Goal 1:: Patient to be I with HEP for cervical spine and back Goal Progress: Goal Met Goal 2:: Patient to improve lumbar ROM and cervical ROM for function of recovery for driving and tennis Goal 3:: Patient to demonstrate 50 % reduction of symptoms and and decrease function Goal 4:: Patient to improve neck oswestry score by 5 points to improve QOL and function Goal Progress: Goal Met Goal 5:: Patient to improve ability to participate with hobbies and tennis w/o recurrent symptoms Goal Progress: Goal Met Plan Plan: D/C D/C Information Discharge Comments: HEP d/c sentence: If there are questions or concerns regarding this patient's physical therapy, please feel free to call me at [phone]. Thank you for the referral of this patient. Sincerely, Audie Cee PT, Cert MDT, OCS Balance/Gait/Functional tests Balance/Special Test Scores Oswestry Neck Score: 5 Improvement % Improvement: 60
== END 2025-03-13 19:00 | disposition home or self-care (01) ==
LOC: PT 10:00
PROVIDERS: PCP Family Medicine; Referring Provider Family Medicine; Visit Provider Family Medicine
DX: M54.2 Cervicalgia (principal); M54.50 Low back pain, unspecified
CPT/HCPCS: 97012; 97110; 97162; 97530